=== PATIENT | female | born 1955 | race Caucasian/White ===

== ENCOUNTER → 2017-03-07 | Outpatient (CLI) | payer BC, SELFPAY | PROVIDERS: Visit Provider Internal Medicine | DX: G51.0 Bell's palsy (principal); I10 Essential (primary) hypertension; Z72.0 Tobacco use; I48.0 Paroxysmal atrial fibrillation | CPT/HCPCS: 70551 ==

== ENCOUNTER → 2017-06-21 08:48 | Outpatient (CLI) | payer BC, SELFPAY ==
[2017-06-21 09:37] LABS: Basophils # 0.1 K/mm3 (0-0.2); Basophils % 0.8 % (0.1-2.0); Eosinophils # 0.2 K/mm3 (0.0-0.4); Eosinophils % 2.7 % (0.1-12.0); Hematocrit 46.9 % (37.0-47.0); Hemoglobin 14.9 g/dL (12.2-16.2); Lymphocytes # 2.3 K/mm3 (0.7-4.5); Lymphocytes % 35.6 K/mm3 (10-50); Mean Corpuscular HGB Conc 31.8 g/dL (31.8-35.4); Mean Corpuscular Hemoglobin 29.5 pg (27.0-31.2); Mean Corpuscular Volume 92.9 fl (81-99); Mean Platelet Volume 8.4 fl (7.4-10.4); Monocytes # 0.4 K/mm3 (0.1-1.0); Monocytes % 5.9 % (1.7-9.3); Neutrophils # 3.5 K/mm3 (1.8-7.8); Platelet Count 185 K/mm3 (142-424); Red Blood Count 5.05 M/mm3 (4.20-5.40); Red Cell Distribution Width 13.8 % (11.5-17.5); White Blood Count 6.3 K/mm3 (4.8-10.8)
[2017-06-21 09:40] LABS: Alanine Aminotransferase 28 U/L (12-78); Albumin Level 3.7 gm/dL (3.4-5.0); Albumin/Globulin Ratio 1.1 (1.1-1.8); Alkaline Phosphatase 106 U/L (46-116); Anion Gap 10.4 mEq/L (5-15); Aspartate Amino Transferase 18 U/L (15-37); Bilirubin,Total 0.4 mg/dL (0.2-1.0); Blood Urea Nitrogen 25 mg/dL (7-18); Calcium 9.8 mg/dL (8.5-10.1); Carbon Dioxide 32 mmol/L (21.0-32.0); Chloride 109 mmol/L (98-107); Creatinine,Serum 0.77 mg/dL (0.55-1.02); Estimated Glomerular Filt Rate 76 ml/min (>60); GFR (African American) 92 ML/MIN (>60); Globulin 3.4 gm/dl (1.3-3.2); Glucose 106 mg/dL (74-106); Potassium 4.4 mmoL/L (3.5-5.1); Sodium 147 mmol/L (136-145); Total Protein,Serum 7.1 gm/dL (6.4-8.2)
== END ==
PROVIDERS: Visit Provider Specialist
DX: D35.2 Benign neoplasm of pituitary gland (principal); R90.89 Other abnormal findings on diagnostic imaging of central nervous system; C56.2 Malignant neoplasm of left ovary
CPT/HCPCS: 36415; 80053; 85025

== ENCOUNTER → 2017-06-23 13:45 | Outpatient (CLI) | payer BC, SELFPAY ==
--- NOTE | 2017-06-23 13:47 | MR_ITS ---
MR head/brain wo/w con HISTORY: Follow-up of 2 enteric enlargement, pituitary adenoma ITS.REASON: Pituitary evaluation ORDERING PHYSICIAN: Ember Nelson MD PATIENT AGE: 62 years COMPARISON: 03/07/2017 TECHNIQUE: Standard multiplanar multiecho sequences are performed without and with gadolinium enhancement.. In addition, dynamic thin section coronal pre and post enhanced images are performed of the pituitary fossa FINDINGS: No midline shift, mass effect, intracranial hemorrhage, or hydrocephalus. No evidence of acute infarction. On the post enhanced images, there is an 11 x 8 mm rounded area of isointensity/nonenhancement involving the central and right aspect of the pituitary gland at the centered within the right paracentral aspect of the pituitary gland with a small extension extending inferior to the sellar portion of the right internal carotid artery. 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 The pituitary stalk is deviated toward the left. The AP dimension of the lesion is 13 mm. There is no compression upon the optic chiasm. No hydrocephalus. No other intracranial lesions are evident. The lesion probably not significant change from 03/07/2017 but is much more obvious on the post enhanced images from today's exam. No other significant anomalies are evident. 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 The lesion however does not appear to extend outside of the sella turcica. The right carotid artery is slightly displaced superiorly at this region. IMPRESSION:
== END ==
PROVIDERS: Family Provider Family Medicine; PCP Internal Medicine; Visit Provider Specialist
DX: D35.2 Benign neoplasm of pituitary gland (principal); R90.89 Other abnormal findings on diagnostic imaging of central nervous system; C56.2 Malignant neoplasm of left ovary
CPT/HCPCS: 70553; A9576

== ENCOUNTER → 2017-07-03 14:59 | Outpatient (CLI) | payer BC, SELFPAY ==
[2017-07-07 12:35] LABS: Prolactin 14.6 ng/mL (4.8-23.3)
== END ==
PROVIDERS: Family Provider Family Medicine; PCP Internal Medicine; Visit Provider Specialist
DX: D35.2 Benign neoplasm of pituitary gland (principal)
CPT/HCPCS: 36415; 84146

== ENCOUNTER 2018-01-02 15:42 | Observation (INO) ==
--- NOTE | 2018-01-02 17:44 | History & Physical Report ---
*Admission Date: 01/02/18 *Chief complaint: Heart racing *History of present illness: This 62-year-old white female has a history of paroxysmal atrial fibrillation. She presented in the office of Dr. Gutierrez today with a heart rate of 140. Dr. Gutierrez decided to admit her for further evaluation and treatment. She has received bisoprolol and seems to be feeling better with some gradual slowing of her heart rate. He remains in atrial fibrillation at this time with a heart rate of 100-120. She has had the paroxysmal atrial fibrillation for years. She normally takes diltiazem extended release 240 mg per 24 hours and Eliquis 5 mg twice a day. She has rheumatoid arthritis and is treated for that as well. She has obstructive sleep apnea and uses a CPAP machine. 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), Chronic Obstructive Pulmonary Disease (COPD), Cerebrovascular Accident, Hyperlipidemia, Hypertension, Palpitations Denies:: Diabetes Mellitus Type 1, Diabetes Mellitus Type 2, MRSA Other Medical History: Reports: Arthritis Other Surgeries: Yes: Appendectomy (05/15/2017), Hysterectomy-Total (05/15/2017), Thyroidectomy (Actually a parathyroidectomy.), Tubal Ligation, Other Amputation: No Fractures: No - *Social History Smoking Status: Former smoker Tobacco Type: cigarettes Alcohol Intake: never Alcohol Intake Frequency:: other Substance Use Type: denies use Occupational Status: employed Housing: house Household Members: spouse - Psychiatric History Expresses thoughts of harming self/others: None Suicide Plan Description: No Plan *Family Hx:: Cancer (Mother age 60 for breast cancer and colon cancer), Hypertension (Father with hernia and hypertension) 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 She had the adenocarcinoma of the ovary) Review of Systems - Review of Systems Review of systems:: pertinent systems reviewed and negative unless documented below - Constitutional Denies anorexia, Denies body ache(s), Denies weight gain, Denies weight loss - Eyes Denies blurry vision, Denies change in vision - ENT Denies abnormal hearing, Denies neck lump, Denies neck pain - *Cardiovascular Reports shortness of breath, Reports irregular heart rhythm, Reports fast heart rate - *Respiratory Reports chest congestion, Reports cough - *Gastrointestinal Denies abdominal pain - *Genitourinary Denies abnormal vaginal bleeding, Denies pelvic pain - *Musculoskeletal Reports joint pain, Reports joint swelling, Denies abnormal walking - Integumentary/Breasts Denies new lesions - *Neurologic Reports dizziness, Reports other (Recent diagnosis of pituitary tumor), Denies abnormal hearing, Denies abnormal speech - Psychiatric Denies behavioral changes - Endocrine Denies cold intolerance, Denies excessive sweating - Allergic/Immunologic Denies GI upset with certain foods Meds Home Medications Medication Instructions Recorded Confirmed Type apixaban 5 mg tablet 5 mg PO BID 04/10/17 History aspirin 81 mg tablet,delayed 81 mg PO QDAY 04/10/17 History release atorvastatin 20 mg tablet 20 mg PO QDAY 04/10/17 History diltiazem CD 240 mg 240 mg PO QDAY 04/10/17 History capsule,extended release 24 hr etanercept 50 mg/mL (0.98 mL) 50 mg SUB-Q QWEEK 04/10/17 History subcutaneous syringe hydroxychloroquine 200 mg tablet 200 mg PO QDAY 04/10/17 History pantoprazole 40 mg tablet,delayed 40 mg PO QDAY 04/10/17 History release Lisinopril/Hydrochlorothiazide 1 tab PO DAILY 01/02/18 01/02/18 History [Lisinopril-Hctz 20-12.5 mg Tab] Allergies Allergy/AdvReac Type Severity Reaction Status Date / Time CODEINE Allergy Intermediate NA-DIZZINES Uncoded 09/28/17 09:56 S TETRACYCLINE Allergy Intermediate I-RASH Uncoded 09/28/17 09:56 Exam Vital signs and Labs for Last 24 Hours: Temp Pulse Resp BP Pulse Ox 98.0 F 117 H 15 139/69 94 L 01/02/18 17:02 01/02/18 17:02 01/02/18 17:02 01/02/18 17:02 01/02/18 17:02 I & O for Last 24 hours: Intake & Output 12/31/17 01/01/18 01/02/18 01/03/18 11:59 11:59 11:59 11:59 Weight 392 lb 6.765 oz - Constitutional no acute distress (Feeling better since admission. Aware of rapid heart rate) - *Routine HEENT Exam Head: Present: normocephalic Eye: Present: EOMI, PERRL ENT: Present: mucous membranes moist - *Routine Neck Exam Present: supple. Absent: lymphadenopathy - *Routine Respiratory Exam Present: rales (Air movement is good but there are some rales heard at the bases bilaterally.) - *Routine Cardiovascular Exam Present: RRR, irregularly irregular - *Routine Abdominal Exam Present: soft. Absent: tenderness - *Routine Rectal Exam Comments: Not examined - *Routine Exam Comments: Not examined - *Routine Extremities Exam Absent: edema - *Routine Skin Exam Present: intact, dry - *Routine Neurological Exam Present: alert, oriented X3. Absent: altered mental status Assessment and Plan (1) Hypertensive disorder Current visit: No Status: Chronic Qualifiers: Hypertension type: essential hypertension Qualified Code(s): I10 - Essen tial (primary) hypertension Category: Medical Code(s): I10 - Essential (primary) hypertension (2) Obstructive sleep apnea syndrome Current visit: No Status: Chronic Category: Medical Code(s): G47.33 - Obstructive sleep apnea (adult) (pediatric) (3) Paroxysmal atrial fibrillation Current visit: No Status: Chronic Category: Medical Code(s): I48.0 - Paroxysmal atrial fibrillation
[2018-01-03 06:12] LABS: Basophils # 0.1 K/mm3 (0-0.2); Eosinophils # 0.2 K/mm3 (0.0-0.4); Eosinophils % 2.9 % (0.1-12.0); Hematocrit 45.6 % (37.0-47.0); Hemoglobin 14.9 g/dL (12.2-16.2); Lymphocytes # 2.6 K/mm3 (0.7-4.5); Lymphocytes % 33.3 K/mm3 (10-50); Mean Corpuscular HGB Conc 32.6 g/dL (31.8-35.4); Mean Corpuscular Hemoglobin 30.1 pg (27.0-31.2); Mean Corpuscular Volume 92.2 fl (81-99); Mean Platelet Volume 8.7 fl (7.4-10.4); Monocytes # 0.5 K/mm3 (0.1-1.0); Monocytes % 6.3 % (1.7-9.3); Neutrophils # 4.4 K/mm3 (1.8-7.8); Neutrophils % 56.5 % (37.0-80.0); Platelet Count 189 K/mm3 (142-424); Red Blood Count 4.94 M/mm3 (4.20-5.40); Red Cell Distribution Width 14.1 % (11.5-17.5); White Blood Count 7.8 K/mm3 (4.8-10.8)
[2018-01-03 06:46] LABS: Anion Gap 6.8 mEq/L (5-15); Calcium 8.8 mg/dL (8.5-10.1); Potassium 3.8 mmoL/L (3.5-5.1); Thyroid Stimulating Hormone 1.34 uIU/ml (0.358-3.740)
--- NOTE | 2018-01-03 08:39 | Progress Note ---
Internal Medicine - PN: Subj *Date: 01/03/18 *Time: 08:36 Interval history: Patient feels about the same today. Her HR has slowed. She does have a slight cough. Did not rest well or eat very much this am. Exam Vital signs and Labs for Last 24 Hours: Temp Pulse Resp BP Pulse Ox 97.9 F 103 H 16 115/67 95 01/02/18 20:00 01/03/18 06:00 01/02/18 20:00 01/03/18 06:00 01/03/18 06:00 Laboratory Results - last 24 hr 01/03/18 05:23: WBC 7.8, RBC 4.94, Hgb 14.9, Hct 45.6, MCV 92.2, MCH 30.1, MCHC 32.6, RDW 14.1, Plt Count 189, MPV 8.7, Neut % (Auto) 56.5, Lymph % (Auto) 33.3, [place] % (Auto) 6.3, Eos % (Auto) 2.9, Baso % (Auto) 1.0, Neut # (Auto) 4.4, Lymph # (Auto) 2.6, [place] # (Auto) 0.5, Eos # (Auto) 0.2, Baso # (Auto) 0.1 01/03/18 05:23: Sodium 139, Potassium 3.8, Chloride 107, Carbon Dioxide 29, Anion Gap 6.8, BUN 19 H, Creatinine 0.91, Estimated Creat Clear 76, Estimated GFR 63, Est GFR ( Amer) 76, Glucose 102, Calcium 8.8, TSH 1.34 I & O for Last 24 hours: Intake & Output 12/31/17 01/01/18 01/02/18 01/03/18 11:59 11:59 11:59 11:59 Intake Total 370 / 370 Balance 370 / 370 Weight 178 lb 9.6 oz - Constitutional no acute distress - *Routine Respiratory Exam Present: rhonchi - *Routine Cardiovascular Exam Present: RRR, irregularly irregular - *Routine Abdominal Exam Present: soft, normoactive bowel sounds. Absent: tenderness - *Routine Extremities Exam Absent: cyanosis, clubbing, edema Assessment and Plan (1) Hypertensive disorder Current visit: No Status: Chronic Qualifiers: Hypertension type: essential hypertension Qualified Code(s): I10 - Essential (primary) hypertension Category: Medical Code(s): I10 - Essential (primary) hypertension (2) Obstructive sleep apnea syndrome Current visit: No Status: Chronic Category: Medical Code(s): G47.33 - Obstructive sleep apnea (adult) (pediatric) (3) Paroxysmal atrial fibrillation Current visit: No Status: Chronic Category: Medical Code(s): I48.0 - Paroxysmal atrial fibrillation - Assessment and plan all Dx Assessment and Plan for all problems:: Cardiology has been consulted. Will get a CXR today.
--- NOTE | 2018-01-03 08:58 | Pharmacy Consult Notes ---
[facility] Pharmacy VTE Monitoring - Patient Demographics Admission date: 01/02/18 Report Date: 01/03/18 Time: 08:57 Allergies/Adverse Reactions: Patient Allergies CODEINE Allergy (Intermediate, Uncoded 09/28/17 09:56) NA-DIZZINESS TETRACYCLINE Allergy (Intermediate, Uncoded 09/28/17 09:56) I-RASH Height: 1.65 m Weight: 81.012 kg - VTE Risk Labs: VTE Related Lab Results Hgb 14.9 g/dL (12.2-16.2) 01/03/18 05:23 Hct 45.6 % (37.0-47.0) 01/03/18 05:23 Plt Count 189 K/mm3 (142-424) 01/03/18 05:23 BUN 19 mg/dL (7-18) H 01/03/18 05:23 Creatinine 0.91 mg/dL (0.55-1.02) 01/03/18 05:23 Estimated Creat Clear 76 mL/min (0-300) 01/03/18 05:23 Was VTE Risk Assessment Performed: Yes VTE Risk Level: Very Low Risk - Prophylaxis VTE Prophylaxis Ordered?: Yes Types of VTE Prophylaxis: Pharmacological Pharmacologic Type: Other (ELIQUIS)
--- NOTE | 2018-01-03 09:02 | Progress Note ---
Addendum entered and electronically signed by AISHA Dunaway 01/03/18 09:03: CXR cancelled for Dr. Tristan after he reviewed admission CXR. Original Note: Subjective Date: 01/03/18 Time: 08:57 Principal diagnosis: A. fib Interval history: 62 yo WF in bed in NAD. Anxious about heart rate and returning to stress at work. No chest pain. Slight headache last evening. Exam Vital signs and Labs for Last 24 Hours: Temp Pulse Resp BP Pulse Ox 97.9 F 103 H 16 115/67 95 01/02/18 20:00 01/03/18 06:00 01/02/18 20:00 01/03/18 06:00 01/03/18 06:00 Laboratory Results - last 24 hr 01/03/18 05:23: WBC 7.8, RBC 4.94, Hgb 14.9, Hct 45.6, MCV 92.2, MCH 30.1, MCHC 32.6, RDW 14.1, Plt Count 189, MPV 8.7, Neut % (Auto) 56.5, Lymph % (Auto) 33.3, [place] % (Auto) 6.3, Eos % (Auto) 2.9, Baso % (Auto) 1.0, Neut # (Auto) 4.4, Lymph # (Auto) 2.6, [place] # (Auto) 0.5, Eos # (Auto) 0.2, Baso # (Auto) 0.1 01/03/18 05:23: Sodium 139, Potassium 3.8, Chloride 107, Carbon Dioxide 29, Anion Gap 6.8, BUN 19 H, Creatinine 0.91, Estimated Creat Clear 76, Estimated GFR 63, Est GFR ( Amer) 76, Glucose 102, Calcium 8.8, TSH 1.34 I & O for Last 24 hours: Intake & Output 12/31/17 01/01/18 01/02/18 01/03/18 11:59 11:59 11:59 11:59 Intake Total 850 / 850 Balance 850 / 850 Weight 178 lb 9.6 oz - *Routine Respiratory Exam Present: CTA bilaterally. Absent: accessory muscle use, rales, rhonchi, wheezes - *Routine Cardiovascular Exam Present: RRR, irregularly irregular. Absent: murmur, gallop, rubs - *Routine Extremities Exam Absent: cyanosis, edema, calf tenderness - *Routine Skin Exam Present: warm. Absent: cyanosis - *Routine Neurological Exam Present: alert, oriented X3, moving all extremities Progress Note: A&P (1) Hypertensive disorder Status: Chronic Current Visit: No (2) Obstructive sleep apnea syndrome Status: Chronic Current Visit: No (3) Paroxysmal atrial fibrillation Status: Chronic Current Visit: No Assessment and Plan for All Diagnoses:: 1. Stop lisinopril 2. Increase bisoprolol to 10 mg daily this AM. 3. Continue diltiazem. 4. Hopefully home later today if BP and HR controlled. 5. Continue eliquis. 6. Follow up in office on this monday.
--- NOTE | 2018-01-03 18:24 | Progress Note ---
Internal Medicine - PN: Subj *Date: 01/03/18 *Time: 18:22 Interval history: She is stable and able to be discharged today. She will continue on bisoprolol 10 mg a day at present. Lisinopril has been discontinued. Other medications are the same. She has follow-up Monday in Dr. Gutierrez's office as well as Dr. kenyon's office. Exam Vital signs and Labs for Last 24 Hours: Temp Pulse Resp BP Pulse Ox 98.5 F 87 17 97/56 L 92 L 01/03/18 15:49 01/03/18 15:49 01/03/18 15:49 01/03/18 15:49 01/03/18 15:49 Laboratory Results - last 24 hr 01/03/18 05:23: WBC 7.8, RBC 4.94, Hgb 14.9, Hct 45.6, MCV 92.2, MCH 30.1, MCHC 32.6, RDW 14.1, Plt Count 189, MPV 8.7, Neut % (Auto) 56.5, Lymph % (Auto) 33.3, [place] % (Auto) 6.3, Eos % (Auto) 2.9, Baso % (Auto) 1.0, Neut # (Auto) 4.4, Lymph # (Auto) 2.6, [place] # (Auto) 0.5, Eos # (Auto) 0.2, Baso # (Auto) 0.1 01/03/18 05:23: Sodium 139, Potassium 3.8, Chloride 107, Carbon Dioxide 29, Anion Gap 6.8, BUN 19 H, Creatinine 0.91, Estimated Creat Clear 76, Estimated GFR 63, Est GFR ( Amer) 76, Glucose 102, Calcium 8.8, TSH 1.34 I & O for Last 24 hours: Intake & Output 01/01/18 01/02/18 01/03/18 01/04/18 11:59 11:59 11:59 11:59 Intake Total 850 / 850 480 / 480 Balance 850 / 850 480 / 480 Weight 178 lb 9.6 oz Assessment and Plan (1) Paroxysmal atrial fibrillation Current visit: No Status: Acute Category: Medical Code(s): I48.0 - Paroxysmal atrial fibrillation (2) Hypertensive disorder Current visit: No Status: Chronic Qualifiers: Hypertension type: essential hypertension Qualified Code(s): I10 - Essential (primary) hypertension Category: Medical Code(s): I10 - Essential (primary) hypertension (3) Obstructive sleep apnea syndrome Current visit: No Status: Chronic Category: Medical Code(s): G47.33 - Obstructive sleep apnea (adult) (pediatric) - Assessment and plan all Dx Assessment and Plan for all problems:: Discharge
--- NOTE | 2018-01-05 15:23 | Discharge Summary ---
General - General Admission date:: 01/02/18 Discharge date: 01/03/18 HPI HPI: This 62-year-old white female has a history of paroxysmal atrial fibrillation. She presented in the office of Dr. Gutierrez today with a heart rate of 140. Dr. Gutierrez decided to admit her for further evaluation and treatment. She has received bisoprolol and seems to be feeling better with some gradual slowing of her heart rate. She remains in atrial fibrillation at this time with a heart rate of 100-120. She has had the paroxysmal atrial fibrillation for years. She normally takes diltiazem extended release 240 mg per 24 hours and Eliquis 5 mg twice a day. She has rheumatoid arthritis and is treated for that as well. She has obstructive sleep apnea and uses a CPAP machine. Hospital Course Hospital Course: The patient's lisinopril was discontinued and she was started on bisoprolol 10mg daily. She remained in afib but her rate decreased. She was seen by cardiology and they felt she could be discharged home on bisoprolol and f/u with them in the office. Objective Vital signs: Temp Pulse Resp BP Pulse Ox 98.5 F 87 17 97/56 L 92 L 01/03/18 15:49 01/03/18 15:49 01/03/18 15:49 01/03/18 15:49 01/03/18 15:49 Narrative: - Constitutional no acute distress (Feeling better since admission. Aware of rapid heart rate) - *Routine HEENT Exam Head: Present: normocephalic Eye: Present: EOMI, PERRL ENT: Present: mucous membranes moist - *Routine Neck Exam Present: supple. Absent: lymphadenopathy - *Routine Respiratory Exam Present: rales (Air movement is good but there are some rales heard at the bases bilaterally.) - *Routine Cardiovascular Exam Present: RRR, irregularly irregular - *Routine Abdominal Exam Present: soft. Absent: tenderness - *Routine Rectal Exam Comments: Not examined - *Routine Exam Comments: Not examined - *Routine Extremities Exam Absent: edema - *Routine Skin Exam Present: intact, dry - *Routine Neurological Exam Present: alert, oriented X3. Absent: altered mental status DS: Diagnosis - Discharge Diagnosis (1) Paroxysmal atrial fibrillation Status: Acute (2) Hypertensive disorder Status: Chronic (3) Obstructive sleep apnea syndrome Status: Chronic Discharge Plan - Patient Discharge Instructions ACTIVITY: Limited activity DIET: continue same diet Patient Instructions: DI for Atrial Fibrillation - Follow up Plan Disposition: Home, Self-Custodial Medications: Home Medications Medication Instructions Recorded Confirmed Type apixaban 5 mg tablet 5 mg PO BID 04/10/17 01/05/18 History aspirin 81 mg tablet,delayed 81 mg PO DAILY 04/10/17 01/05/18 History release diltiazem CD 240 mg 240 mg PO DAILY 04/10/17 01/05/18 History capsule,extended release 24 hr pantoprazole 40 mg tablet,delayed 40 mg PO DAILY 04/10/17 01/05/18 History release Atorvastatin Calcium [Atorvastatin 10 mg PO HS 01/03/18 01/05/18 History 10mg Tab] Etanercept [Enbrel Sureclick] 50 mg SQ WEEKLY 01/03/18 01/05/18 History Hydroxychloroquine Sulfate 200 mg PO BID 01/03/18 01/05/18 History [Plaquenil 200mg tablet] Prescriptions/Medication Reconciliation: New Bisoprolol Fumarate [Zebeta 5mg tablet] 10 mg PO DAILY 30 Days #30 tab Continue aspirin 81 mg tablet,delayed release 81 mg PO DAILY diltiazem CD 240 mg capsule,extended release 24 hr 240 mg PO DAILY apixaban 5 mg tablet 5 mg PO BID pantoprazole 40 mg tablet,delayed release 40 mg PO DAILY Etanercept [Enbrel Sureclick] 50 mg SQ WEEKLY Hydroxychloroquine Sulfate [Plaquenil 200mg tablet] 200 mg PO BID Atorvastatin Calcium [Atorvastatin 10mg Tab] 10 mg PO HS Discontinued Lisinopril [Lisinopril 20mg Tab] 20 mg PO DAILY
== END 2018-01-03 19:03 | disposition home or self-care (01) ==
LOC: ICU → 2ND 01-03 15:09
PROVIDERS: ADMIT Family Medicine; ATTEND Family Medicine
CPT/HCPCS: 36415; 71020; 71046; 80048; 84443; 85025; G0378

== ENCOUNTER → 2018-01-25 07:16 | Outpatient (CLI) | payer BC, SELFPAY ==
--- NOTE | 2018-01-25 07:18 | CA_ITS ---
PROCEDURE: INDICATIONS FOR THE TEST: Chest pain COPD Heart Murmur Tobacco Smoking Palpitations Fatigue Syncope Edema HypertensionXDiabetes Mellitus Rheumatic Fever SOBXDOE Obesity Hyperlipidemia Family History HD Additional History AF PATIENT INFORMATION HEIGHT: 62 WEIGHT:179 GENDER: Female B/P:101/71 2-D/M-MODE INTERPRETATION: 2-D MEASUREMENTS OBSERVED VALUES IN CMS Right Ventricular Dimension (RVDd) 3.2 Interventricular Septum (Thickness)(IVsd) .8 Left Ventricular Internal Dimensions(LVIDd) 5.0 Left Ventricular Posterior Wall (Thickness)(LVPWd) .6 Aortic Root 3.3 Aortic Cusp Separation 1.9 Left Atrial Dimensions (LAD) 4.0 2D 1. Left atrium is qualitatively mildly enlarged, left ventricle is normal size, mild concentric left ventricular hypertrophy, visually estimated ejection fraction 55% with no regional wall motion abnormality. 2. The right atrium and ventricle are mildly enlarged with normal contractility. 3. The aortic valve is minimally thickened and fibrosed. 4. The mitral and tricuspid valvular grossly normal. 5. The pulmonic valve is poorly present. 6. No significant pericardial effusion noted. DOPPLER INTERROGATION: Doppler interrogation of the aortic, mitral and tricuspid valvular presence of mild mitral and tricuspid regurgitation, tricuspid regurgitation jet velocity is inadequate for calculation of the right ventricular systolic pressure, grade 1 diastolic dysfunction seen with tissue Doppler evidence of raised left atrial pressure. CONCLUSION: 1. Mildly enlarged left atrium, normal left ventricular size, mild concentric left ventricular hypertrophy, visually estimated ejection fraction 55% with no regional wall motion abnormality. Grade 1 diastolic dysfunction seen with tissue Doppler evidence of raised left atrial pressure. 2. Mildly enlarged right atrium and right ventricle, contractility of the right ventricle is normal. 3. Mild mitral and tricuspid regurgitation 4. No significant pericardial effusion noted.
--- NOTE | 2018-01-25 07:18 | NM_ITS ---
History and Indications: Hypertension, hyperlipidemia, shortness of breath. Procedure: Patient received 0.4 mg of intravenous Lexiscan, resting heart rate was 56 bpm resting blood pressure 136/77, with Lexiscan maximum heart rate achieved was 77 bpm which is less than 85% of the maximum predicted heart rate and a blood pressure was 115/56. With Lexiscan complaint of shortness of breath. Electrocardiogram: Resting electrocardiogram showed sinus bradycardia with Lexiscan there is less than 1.[address] segment depression noted from the baseline EKG. The EKG portion of the Lexiscan Myoview is nondiagnostic. Cardiac stress and resting SPECT images: Cardiac stress and rest SPECT images were obtained using technetium 99 Myoview 31.3 mCi stress and 10.3 mCi rest. Gated SPECT further analysis of segmental wall motion and calculation of the ejection fraction also done. Cardiac stress and rest images show mild fixed defect in the anterior wall with normal contractility gated SPECT is likely secondary to soft tissue attenuation, no reversible ischemia seen. Computer derived ejection fraction is 64% with no regional wall motion abnormality, right ventricle is normal size and contractility. Conclusion: 1. The EKG portion of the Lexiscan Myoview is nondiagnostic. 2. No scintigraphic evidence of reversible ischemia seen, computer derived ejection fraction is 64% with no regional wall motion abnormality, right ventricle is normal size and contractility. 3. Normal Lexiscan Myoview study.
--- NOTE | 2018-01-25 10:36 | HMH.ITSHM ---
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 []bisprolol cartia pantoprazole enbrel asa atorvastatin
== END ==
PROVIDERS: PCP Family Medicine; Visit Provider Internal Medicine Cardiovascular Disease
DX: R07.9 Chest pain, unspecified (principal); R06.00 Dyspnea, unspecified; I48.0 Paroxysmal atrial fibrillation; E78.49 Other hyperlipidemia; G47.33 Obstructive sleep apnea (adult) (pediatric); I10 Essential (primary) hypertension; Z79.01 Long term (current) use of anticoagulants
CPT/HCPCS: 78452; 93005; 93017; 93306; A9502; J2785

== ENCOUNTER → 2019-04-22 16:23 | Outpatient (CLI) | payer BC, SELFPAY ==
--- NOTE | 2019-04-22 16:25 | XR_ITS ---
PROCEDURE: XR CERVICAL SPINE W FLEX/EXT CLINICAL INDICATION: neck pain COMPARISON: No exams were available for comparison FINDINGS: Normal alignment. No fracture or dislocation is evident. No lytic or blastic change. Mild facet arthritic changes are present at C4-C5. No significant foraminal narrowing. Mild degenerative disc disease C5-C6. Small anterior osteophytes are present at C4-C5 and C6. Flexion and extension views were obtained. There is minimal anterior subluxation of C3 on C4 of 2 mm and C4 on C5 of 2 mm.. There are carotid artery calcifications noted IMPRESSION: Degenerative changes, no acute finding Minimal anterior subluxation of C3 on C4 of 2 mm and C4 on C5 of 2 mm of questionable clinical significance Dictated by: Nav Jolley MD 04/22/2019 17:58 Electronically signed by Nav Jolley MD in [place] 04/22/2019 17:58
[2019-04-22 17:59] LABS: Ferritin 113 ng/mL (8-388)
== END ==
PROVIDERS: PCP Family Medicine; Visit Provider Specialist
DX: M54.2 Cervicalgia (principal); E83.10 Disorder of iron metabolism, unspecified; G25.81 Restless legs syndrome
CPT/HCPCS: 36415; 72052; 82728

== ENCOUNTER → 2019-05-27 08:02 | Outpatient (POV) | payer BC, SELFPAY | PROVIDERS: PCP Family Medicine; Visit Provider Specialist | DX: M54.2 Cervicalgia (principal); G25.81 Restless legs syndrome; M54.10 Radiculopathy, site unspecified; R20.0 Anesthesia of skin; R20.2 Paresthesia of skin | CPT/HCPCS: 95886; 95909 ==

== ENCOUNTER → 2019-07-15 16:55 | Outpatient (CLI) | payer BC, SELFPAY ==
[2019-07-15 17:14] LABS: Basophils # 0.1 K/mm3 (0-0.2); Basophils % 1.2 % (0.1-2.0); Eosinophils # 0.1 K/mm3 (0.0-0.4); Eosinophils % 1.7 % (0.1-12.0); Hematocrit 47.1 % (37.0-47.0); Hemoglobin 15.5 g/dL (12.2-16.2); Lymphocytes # 1.8 K/mm3 (0.7-4.5); Lymphocytes % 23.2 % (10-50); Mean Platelet Volume 8.5 fl (7.4-10.4); Monocytes # 0.4 K/mm3 (0.1-1.0); Monocytes % 5.2 % (1.7-9.3); Neutrophils # 5.3 K/mm3 (1.8-7.8); Neutrophils % 68.6 % (37.0-80.0); Platelet Count 162 K/mm3 (142-424); Red Blood Count 5.01 M/mm3 (4.20-5.40); Red Cell Distribution Width 13.5 % (11.5-17.5); White Blood Count 7.8 K/mm3 (4.8-10.8)
[2019-07-15 18:12] LABS: Erythrocyte Sedimentation Rate 12 mm/hr (0-30)
[2019-07-15 18:51] LABS: Chloride 104 mmol/L (98-107)
[2019-07-15 18:52] LABS: Potassium 3.8 mmoL/L (3.5-5.1); Sodium 141 mmol/L (136-145)
[2019-07-15 18:54] LABS: Alanine Aminotransferase 24 U/L (12-78); Aspartate Amino Transferase 22 U/L (14-36); Blood Urea Nitrogen 17 mg/dl (7-17); Estimated Glomerular Filt Rate 72 ml/min (>60); GFR (African American) 88 ML/MIN (>60)
[2019-07-15 18:55] LABS: Albumin Level 4.2 g/dl (3.5-5.0); Albumin/Globulin Ratio 1.8 (1.1-1.8); Alkaline Phosphatase 83 U/L (38-126); Anion Gap 12.8 mEq/L (5-15); Bilirubin,Total 0.4 mg/dl (0.2-1.3); Calcium 9.5 mg/dl (8.4-10.2); Carbon Dioxide 28 mmol/L (22.0-30.0); Globulin 2.3 g/dL (1.3-3.2); Glucose 70 mg/dl (74-100); Total Protein,Serum 6.5 g/dl (6.3-8.2)
[2019-07-15 19:00] LABS: C-Reactive Protein 4.6 mg/L (0-4)
== END ==
PROVIDERS: Visit Provider Internal Medicine Rheumatology
DX: C57.8 Malignant neoplasm of overlapping sites of female genital organs (principal); D44.3 Neoplasm of uncertain behavior of pituitary gland; E55.9 Vitamin D deficiency, unspecified; G51.0 Bell's palsy; I48.91 Unspecified atrial fibrillation
CPT/HCPCS: 36415; 80053; 85025; 85651; 86140

== ENCOUNTER → 2020-01-01 16:26 | Outpatient (CLI) | payer BC, SELFPAY ==
[2020-01-01 17:03] LABS: Basophils # 0.1 K/mm3 (0-0.2); Basophils % 0.9 % (0.1-2.0); Eosinophils # 0.2 K/mm3 (0.0-0.4); Eosinophils % 2.6 % (0.1-12.0); Hematocrit 54.8 % (37.0-47.0); Hemoglobin 17.6 g/dL (12.2-16.2); Lymphocytes # 1.9 K/mm3 (0.7-4.5); Lymphocytes % 25.9 % (10-50); Mean Corpuscular Hemoglobin 30.7 pg (27.0-31.2); Mean Corpuscular Volume 95.9 fl (81-99); Mean Platelet Volume 9.4 fl (7.4-10.4); Monocytes # 0.5 K/mm3 (0.1-1.0); Monocytes % 6.6 % (1.7-9.3); Neutrophils # 4.6 K/mm3 (1.8-7.8); Neutrophils % 63.8 % (37.0-80.0); Platelet Count 158 K/mm3 (142-424); Red Blood Count 5.72 M/mm3 (4.20-5.40); Red Cell Distribution Width 13.7 % (11.5-17.5); White Blood Count 7.2 K/mm3 (4.8-10.8)
[2020-01-01 17:31] LABS: Chloride 103 mmol/L (98-107); Potassium 3.8 mmoL/L (3.5-5.1); Sodium 142 mmol/L (136-145)
[2020-01-01 17:34] LABS: Alanine Aminotransferase 30 U/L (12-78); Albumin Level 4.3 g/dl (3.5-5.0); Albumin/Globulin Ratio 1.6 (1.1-1.8); Alkaline Phosphatase 123 U/L (38-126); Anion Gap 10.8 mEq/L (5-15); Aspartate Amino Transferase 26 U/L (14-36); Bilirubin,Total 0.4 mg/dl (0.2-1.3); Blood Urea Nitrogen 26 mg/dl (7-17); Calcium 9.7 mg/dl (8.4-10.2); Carbon Dioxide 32 mmol/L (22.0-30.0); Estimated Glomerular Filt Rate 72 ml/min (>60); GFR (African American) 88 ML/MIN (>60); Globulin 2.7 g/dL (1.3-3.2); Glucose 106 mg/dl (74-100)
[2020-01-01 18:30] LABS: Erythrocyte Sedimentation Rate 33 mm/hr (0-30)
== END ==
PROVIDERS: Visit Provider Internal Medicine Rheumatology
DX: C57.8 Malignant neoplasm of overlapping sites of female genital organs (principal); D44.3 Neoplasm of uncertain behavior of pituitary gland; E55.9 Vitamin D deficiency, unspecified; I48.91 Unspecified atrial fibrillation; G51.0 Bell's palsy
CPT/HCPCS: 36415; 80053; 85025; 85651; 86140

== ENCOUNTER → 2020-01-23 17:09 | Outpatient (CLI) | payer BC, SELFPAY ==
[2020-01-23 18:58] LABS: Chloride 105 mmol/L (98-107); Sodium 141 mmol/L (136-145)
[2020-01-23 18:59] LABS: Potassium 3.6 mmoL/L (3.5-5.1)
[2020-01-23 19:01] LABS: Blood Urea Nitrogen 28 mg/dl (7-17); Estimated Glomerular Filt Rate 72 ml/min (>60); GFR (African American) 88 ML/MIN (>60)
[2020-01-23 19:02] LABS: Anion Gap 11.6 mEq/L (5-15); Calcium 9.7 mg/dl (8.4-10.2); Carbon Dioxide 28 mmol/L (22.0-30.0); Glucose 99 mg/dl (74-100)
== END ==
PROVIDERS: Visit Provider Ophthalmology
DX: J44.9 Chronic obstructive pulmonary disease, unspecified (principal); I10 Essential (primary) hypertension
CPT/HCPCS: 36415; 80048

== ENCOUNTER → 2020-03-12 09:05 | Outpatient (CLI) | payer BC, SELFPAY ==
[2020-03-12 12:29] LABS: Coronavirus 19 IgG Antibody Positive (Negative); Coronavirus 19 IgM Antibody Positive (Negative)
== END ==
PROVIDERS: PCP Family Medicine; Visit Provider Family Medicine
DX: Z86.19 Personal history of other infectious and parasitic diseases (principal)
CPT/HCPCS: 86328

== ENCOUNTER → 2020-03-19 08:36 | Outpatient (CLI) | payer BC, SELFPAY ==
[2020-03-19 10:38] LABS: Coronavirus 19 IgG Antibody Positive (Negative)
[2020-03-19 10:39] LABS: Coronavirus 19 IgM Antibody Positive (Negative)
== END ==
PROVIDERS: PCP Family Medicine; Visit Provider Family Medicine
DX: Z86.19 Personal history of other infectious and parasitic diseases (principal)
CPT/HCPCS: 36415; 86328

== ENCOUNTER → 2020-03-26 09:25 | Outpatient (CLI) | payer BC, SELFPAY ==
[2020-03-26 13:19] LABS: Coronavirus 19 IgG Antibody Positive (Negative); Coronavirus 19 IgM Antibody Positive (Negative)
== END ==
PROVIDERS: PCP Family Medicine; Visit Provider Family Medicine
DX: Z86.16 Personal history of COVID-19 (principal)
CPT/HCPCS: 36415; 86328

== ENCOUNTER → 2020-06-01 06:16 | Outpatient (CLI) | payer BC, SELFPAY ==
--- NOTE | 2020-06-01 06:17 | CA_ITS ---
APPROVED REPORT Exam: Pharmacologic Technologist: Annabel Miles Ht: 5 ft 5 in Wt: 168 lbs BSA: 1.84 m2 HR: 58 bpm BP: 174/83 mmHg Indications: Atrial Fibrillation, Shortness of Breath Medical History Medications: Aspirin,,,,, Flecainide,,,,, Pantoprazole,,,,, Atorvastatin,,,,, Hydrochloroquine,,,,, Apixaban,,,,, ETanercept,,,,, Stress Test Details Test: LEXISCAN HR Resting HR: 63 bpm Max Heart Rate (APMHR): 156 bpm Max HR Achieved: 90 bpm Target HR (85% APMHR): 132 bpm % of APMHR: 57 Recovery HR: 80 bpm BP Resting BP: 174.0/83.0 mmHg Max BP: 174.0/83.0 mmHg Recovery BP: 163.0/84.0 mmHg ECG Resting ECG: Sinus rhythm Clinical Exercise duration: 04:01 min Highest Stage Achieved: Exercise capacity: 1.0 METs Stress ECG Conclusion Lexiscan portion completed. Patient complained of shortness of breath during peak infusion. Symptoms: Shortness of breath during peak infusion, resolved in recovery. No chest pain. Arrhythmias/Ectopy: No ectopy noted. ST-T Changes: Less than 1.[address] depression noted. Conclusion: Images to follow. Electronically signed by : Eliceo Calderon, 06/01/2020 18:27:56
--- NOTE | 2020-06-01 06:17 | CA_ITS ---
APPROVED REPORT EXAM: Comprehensive 2D, Doppler, and color-flow Echocardiogram Breakfast Manager: Michelle Rodríguez CRT Ht: 5 ft 5 in Wt: 168lbs BSA: 1.84 BP: 143/82 mmHg Indications: Shortness of Breath, Atrial Fibrillation, Hyperlipidemia, Hypertension/HDD 2D Dimensions LVOT 1.95 cm (M/F) 1.5-2.5 M-Mode Dimensions RVDd 3.21 cm (0.9-2.6) LA Diam 3.95 cm (1.9-4.0) LVDd 4.50 cm (3.5-5.7) Ao Diam 3.16 cm (2.0-3.7) LVDs 3.14 cm (3.5-5.7) IVSd 1.61 cm (0.6-1.1) PWd 0.50 cm (0.6-1.1) EF (Teich) 57.70% FS 30.20% EDV (Teich) 92.40 mL ESV (Teich) 39.10 mL LV Diastology E Decel Time 157.00 (160-240 msec) E/A Ratio 0.80 MED E' 5.70 (< 7 cm/sec) MED A' 9.20 cm/s E'/MED E' Ratio 10.46 (>14) LAT E' 9.00 (<10 cm/sec) LAT A' 11.60 cm/s E/LAT E' Ratio 6.62 (>14) Aortic Valve AO Peak GR. 5.90 mmHg Mitral Valve MV A Velocity 74.00 (40-130 cm/s) E/A Ratio 0.80 MV Decel. Time 157.00 (160-240 ms) Tricuspid Valve TR P. Velocity 149.00 cm/s RAP Estimate 10.00 mmHg RVSP 18.90 mmHg Left Ventricle Left atrium is mildly enlarged, left ventricle is normal size, mild concentric left ventricular hypertrophy, visually estimated ejection fraction 55% with no regional wall motion abnormality, grade 1 diastolic dysfunction seen without tissue Doppler evidence of raise left atrial pressure. Right Ventricle Right atrium and right ventricle are normal size and contractility. Aortic Valve Aortic valve is minimally thickened and fibrosed, there is no aortic stenosis or aortic insufficiency. Mitral Valve Mitral valve is grossly normal, there is trace mitral regurgitation. Tricuspid Valve Tricuspid valve grossly normal, there is trace tricuspid regurgitation. Tricuspid regurgitation jet velocity is inadequate for calculation of the right ventricular systolic pressure. Pulmonic Valve Pulmonic valve is poorly visualized. Great Vessels Aortic root is normal size. Pericardium No significant pericardial effusion noted. Conclusion 1. Mildly enlarged left atrium, normal left ventricular size, mild concentric left ventricular hypertrophy, visually estimated ejection fraction 55% with no regional wall motion abnormality, grade 1 diastolic dysfunction seen without tissue Doppler evidence of raise left atrial pressure. 2. Trace mitral and tricuspid regurgitation. 3. No significant pericardial effusion noted. Electronically signed by : Eliceo Calderon, 06/01/2020 17:48:41
--- NOTE | 2020-06-01 06:17 | NM_ITS ---
APPROVED REPORT Exam: Nuclear Stress Test Indication: SOB, Afib, Fatigue, HTN, High cholesterol, Tobacco use, Family history Patient Location: Outpatient Stress Tech: Annabel Miles RI Tech:Yudi Greenfield, ARRT, RT (R)(N) Ht: 5 ft 5 in Wt: 168 lbs Bra Size: 36B HR: 58 bpm BP: 174/83 mmHg BSA: 1.84 m2 BMI: 27.9 History: SOB, Afib, Fatigue, HTN, High cholesterol, Tobacco use, Family history Procedure: Patient received a 0.4 mg of intravenous Lexiscan, resting heart rate 58 bpm, resting blood pressure 174/83 mmHg, with Lexiscan maximum heart rate achived was 88 bpm which is Less than 85 % of the maximum predicted heart rate and blood pressure was 157/82 mmHg. With Lexiscan, patient denied any complaint of chest pain. Electrocardiogram Resting electrocardiogram showed sinus rhythm, with Lexiscan there is less than 1.[address] segment depression noted from the baseline EKG. The EKG portion of the Lexiscan is nondiagnostic. Cardiac Stress and Resting SPECT Images: Cardiac Stress and Resting SPECT images were obtained using technetium 99m Myoview 32.3 mCi stress and 10.48 mCi at rest. Gated SPECT for analysis of segmental wall motion and calculation of the ejection fraction also done. Prone images were also obtained. Cardiac stress and resting SPECT images show uniform myocardial activity without segmental perfusion abnormality, computer derived ejection fraction is 63% with no regional wall motion abnormality, right ventricle is normal size and contractility. Conclusion: 1. The EKG portion of the Lexiscan is nondiagnostic. 2. No scintigraphic evidence of reversible ischemia seen, computer derived ejection fraction is 63% with no regional wall motion abnormality, right ventricle is normal size and contractility. 3. Normal Lexiscan Myoview study. Electronically signed by : Eliceo Calderon, 06/01/2020 18:48:59
--- NOTE | 2020-06-01 08:02 | HMH.ITSHM ---
Current Home Medications as stated by this patient Melania Rose or inventory representative. []ATORVASTATIN ACID REFLUX MED ELIQUIS FLECINIDE LISINOPRIL EMBREL HYDROXYCHLOROQUINE ASA
== END ==
PROVIDERS: PCP Family Medicine; Visit Provider Nurse Practitioner Family
DX: R06.00 Dyspnea, unspecified (principal); I48.0 Paroxysmal atrial fibrillation; I10 Essential (primary) hypertension; E78.5 Hyperlipidemia, unspecified; G47.33 Obstructive sleep apnea (adult) (pediatric)
CPT/HCPCS: 78452; 93017; 93306; A9502; J2785

== ENCOUNTER → 2020-06-25 16:01 | Outpatient (CLI) | payer BC, SELFPAY ==
[2020-06-25 17:53] LABS: Potassium 4.8 mmoL/L (3.5-5.1)
== END ==
PROVIDERS: Visit Provider Ophthalmology
DX: I10 Essential (primary) hypertension (principal)
CPT/HCPCS: 36415; 84132

== ENCOUNTER → 2020-09-23 09:59 | Outpatient (CLI) | payer BC, SELFPAY ==
--- NOTE | 2020-09-23 10:01 | XR_ITS ---
PROCEDURE: XR CHEST 2V CLINICAL HISTORY: POST-COVID SYNDROME COMPARISON: CR CXR CHEST(2 VIEWS-NOT PORTABLE) from 04/21/2012 DX CXR CHEST(2 VIEWS-NOT PORTABLE) from 03/08/2017 CR CXR2V XR chest 2V from 01/02/2018 FINDINGS: The cardiomediastinal silhouette and pulmonary vascularity are within normal limits. There is coarsening of the bronchovascular markings which may be related to smoking related lung disease. Calcified breast implants are noted. No lobar consolidation or collapse. No areas of pulmonary fibrosis apparent. No acute bony abnormalities. IMPRESSION: Chronic changes. No change no acute finding. Dictated by: Nav Jolley MD 09/23/2020 10:20 Nav Jolley MD in [place] 09/23/2020 10:20
== END ==
PROVIDERS: PCP Family Medicine; Visit Provider Family Medicine
DX: B94.8 Sequelae of other specified infectious and parasitic diseases (principal); Z86.16 Personal history of COVID-19
CPT/HCPCS: 71046

== ENCOUNTER → 2020-11-11 09:15 | Outpatient (CLI) | payer BC, SELFPAY ==
[2020-11-11 09:43] LABS: Basophils # 0.1 K/mm3 (0-0.2); Basophils % 1.1 % (0.1-2.0); Eosinophils # 0.2 K/mm3 (0.0-0.4); Eosinophils % 2.2 % (0.1-12.0); Hematocrit 51.6 % (37.0-47.0); Hemoglobin 17.1 g/dL (12.2-16.2); Lymphocytes # 2.1 K/mm3 (0.7-4.5); Lymphocytes % 27.9 % (10-50); Mean Corpuscular HGB Conc 33.1 g/dL (31.8-35.4); Mean Corpuscular Hemoglobin 31.8 pg (27.0-31.2); Mean Corpuscular Volume 96.1 fl (81-99); Mean Platelet Volume 9.5 fl (7.4-10.4); Monocytes # 0.4 K/mm3 (0.1-1.0); Monocytes % 5.2 % (1.7-9.3); Neutrophils # 4.8 K/mm3 (1.8-7.8); Neutrophils % 63.6 % (37.0-80.0); Platelet Count 179 K/mm3 (142-424); Red Blood Count 5.37 M/mm3 (4.20-5.40); Red Cell Distribution Width 13.8 % (11.5-17.5); White Blood Count 7.5 K/mm3 (4.8-10.8)
[2020-11-11 10:12] LABS: Erythrocyte Sedimentation Rate 8 mm/hr (0-30)
[2020-11-11 10:32] LABS: Alanine Aminotransferase 26 U/L (12-78); Albumin Level 4.1 g/dl (3.5-5.0); Albumin/Globulin Ratio 1.5 (1.1-1.8); Alkaline Phosphatase 99 U/L (38-126); Anion Gap 15.2 mEq/L (5-15); Aspartate Amino Transferase 25 U/L (14-36); Bilirubin,Total 0.4 mg/dl (0.2-1.3); Blood Urea Nitrogen 22 mg/dl (7-17); Calcium 9.7 mg/dl (8.4-10.2); Carbon Dioxide 30 mmol/L (22.0-30.0); Chloride 102 mmol/L (98-107); Estimated Glomerular Filt Rate 72 ml/min (>60); GFR (African American) 87 ML/MIN (>60); Globulin 2.7 g/dL (1.3-3.2); Glucose 101 mg/dl (74-100); Potassium 4.2 mmoL/L (3.5-5.1); Sodium 143 mmol/L (136-145); Total Protein,Serum 6.8 g/dl (6.3-8.2)
[2020-11-11 10:38] LABS: C-Reactive Protein 1.9 mg/L (0-4)
[2020-11-11 10:48] LABS: 25-OH Vitamin D, Total 44.4 ng/mL (30-100)
== END ==
PROVIDERS: Visit Provider Nurse Practitioner Family
DX: M06.9 Rheumatoid arthritis, unspecified (principal); E55.9 Vitamin D deficiency, unspecified; Z79.899 Other long term (current) drug therapy
CPT/HCPCS: 36415; 80053; 82306; 85025; 85651; 86140

== ENCOUNTER → 2020-11-30 07:45 | Outpatient (CLI) | payer BC, SELFPAY ==
[2020-11-30 08:35] VITALS: PULSE 61; PULSE 68
== END ==
PROVIDERS: PCP Family Medicine; Visit Provider Family Medicine
DX: R06.00 Dyspnea, unspecified (principal)
CPT/HCPCS: 94060; 94618; 94640; 94726; 94729

== ENCOUNTER → 2020-12-22 09:01 | Outpatient (CLI) | payer BC, SELFPAY ==
--- NOTE | 2020-12-22 09:02 | CT_ITS ---
PROCEDURE: CT LUNG SCREENING CLINICAL INDICATION: lung cancer screening COMPARISON: No exams were available for comparison TECHNIQUE: The exam was performed on a GE Light Speed [address] scanner using 2.90 mGy CTDI. A low dose helical CT CHEST was performed on a multi-detector scanner. All CT scans at the facility use one or more dose reduction, viz: automated exposure control, ma/kV adjustment per patient size (including targeted exams where dose is matched to indication, i.e. head), or iterative reconstruction technique. The LDCT was performed in a facility that meets the criteria for the screening program. Data regarding this exam was submitted to ACR which is an approved registry. The order for this exam indicates that it came as a result of a lung cancer screening counseling shard decision-making visit that included all the elements required of such a visit including smoking cessation. The radiologist interpreting this exam meets the CMS criteria for the LDCT lung cancer screening program. The exam is reported using the Lung-RADS classification scale and reported to the ACR registry. NOTE: This study was performed for the specific purposes of lung cancer screening and is not an alternative to diagnostic chest CT. RADIATION DOSE: CTDI vol(CT dose Index-volume) = 2.90mG DLP (Dose Length Product) = 106.81 mGcm FINDINGS: COPD with scattered areas of scarring with centrilobular emphysema. There are 2 nodules in the right lower lobe medially adjacent to 1 another at 5 and 4 mm. The 5 mm nodule may be partially calcified. There is a 5 mm nodule in the left lower lobe along the hemidiaphragm region. There are few scattered small pneumatoceles. No mediastinal or hilar mass or adenopathy. OTHER FINDINGS: Coronary artery calcifications. Bilateral breast implants with capsular calcification. Curvilinear thin area of increased density with some minimal calcification along the posterior aspect of the right implant consistent with an intracapsular rupture IMPRESSION: Lung-RADS Category 2 Benign Appearance or Behavior regarding bilateral nodules. Follow-up: [address] Chest without contrast. Bilateral breast implant fibrous capsule calcification with right intracapsular rupture Dictated by: Nav Jolley MD 12/28/2020 10:02 Nav Jolley MD in [place] 12/28/2020 10:02
== END ==
PROVIDERS: PCP Family Medicine; Visit Provider Internal Medicine Pulmonary Disease
DX: Z87.891 Personal history of nicotine dependence (principal); Z12.2 Encounter for screening for malignant neoplasm of respiratory organs
CPT/HCPCS: 71271

== ENCOUNTER → 2021-02-16 11:50 | Outpatient (CLI) | payer BC, SELFPAY ==
[2021-02-17 10:16] LABS: Hep A Ab, IgM Negative (Negative); Hepatitis B Core Antibody IgM Negative (Negative); Hepatitis B Surface Antigen Negative (Negative); Hepatitis C Antibody <0.1 s/co ratio (0.0-0.9)
[2021-02-19 05:09] LABS: QuantiFERON-TB Gold Plus Negative (Negative)
== END ==
PROVIDERS: Visit Provider Internal Medicine Rheumatology
DX: C57.8 Malignant neoplasm of overlapping sites of female genital organs (principal); G51.0 Bell's palsy; I48.91 Unspecified atrial fibrillation; E55.9 Vitamin D deficiency, unspecified; H04.551 Acquired stenosis of right nasolacrimal duct
CPT/HCPCS: 36415; 80074; 86480

== ENCOUNTER → 2021-05-11 10:52 | Outpatient (CLI) | payer MEDICARE, BC, SELFPAY ==
[2021-05-11 11:47] LABS: Basophils # 0.1 K/mm3 (0-0.2); Basophils % 1.3 % (0.1-2.0); Eosinophils # 0.2 K/mm3 (0.0-0.4); Eosinophils % 2.5 % (0.1-12.0); Hematocrit 50.6 % (37.0-47.0); Hemoglobin 16.4 g/dL (12.2-16.2); Lymphocytes # 1.7 K/mm3 (0.7-4.5); Lymphocytes % 24.5 % (10-50); Mean Corpuscular HGB Conc 32.5 g/dL (31.8-35.4); Mean Corpuscular Hemoglobin 31.8 pg (27.0-31.2); Mean Platelet Volume 9.5 fl (7.4-10.4); Monocytes # 0.4 K/mm3 (0.1-1.0); Monocytes % 6.1 % (1.7-9.3); Neutrophils # 4.4 K/mm3 (1.8-7.8); Neutrophils % 65.6 % (37.0-80.0); Platelet Count 169 K/mm3 (142-424); Red Blood Count 5.16 M/mm3 (4.20-5.40); Red Cell Distribution Width 13.6 % (11.5-17.5); White Blood Count 6.7 K/mm3 (4.8-10.8)
[2021-05-11 12:29] LABS: Erythrocyte Sedimentation Rate 31 mm/hr (0-30)
[2021-05-11 13:00] LABS: Alanine Aminotransferase 31 U/L (12-78); Albumin Level 4.2 g/dl (3.5-5.0); Albumin/Globulin Ratio 1.8 (1.1-1.8); Alkaline Phosphatase 75 U/L (38-126); Anion Gap 11.5 mEq/L (5-15); Aspartate Amino Transferase 26 U/L (14-36); Bilirubin,Total 0.5 mg/dl (0.2-1.3); Blood Urea Nitrogen 22 mg/dl (7-17); Calcium 9.3 mg/dl (8.4-10.2); Carbon Dioxide 32 mmol/L (22.0-30.0); Chloride 102 mmol/L (98-107); Estimated Glomerular Filt Rate 63 ml/min (>60); GFR (African American) 76 ML/MIN (>60); Globulin 2.3 g/dL (1.3-3.2); Glucose 99 mg/dl (74-100); Potassium 4.5 mmoL/L (3.5-5.1); Sodium 141 mmol/L (136-145); Total Protein,Serum 6.5 g/dl (6.3-8.2)
== END ==
PROVIDERS: Visit Provider Internal Medicine Rheumatology
DX: C57.8 Malignant neoplasm of overlapping sites of female genital organs (principal); E55.9 Vitamin D deficiency, unspecified; G51.0 Bell's palsy; H04.551 Acquired stenosis of right nasolacrimal duct; I48.91 Unspecified atrial fibrillation
CPT/HCPCS: 36415; 80053; 85025; 85651; 86140

== ENCOUNTER → 2021-06-03 09:47 | Outpatient (CLI) | payer MEDICARE, BC, SELFPAY ==
[2021-06-03 10:05] LABS: Basophils # 0.1 K/mm3 (0-0.2); Basophils % 1.2 % (0.1-2.0); Eosinophils # 0.1 K/mm3 (0.0-0.4); Eosinophils % 1.8 % (0.1-12.0); Hematocrit 50.4 % (37.0-47.0); Hemoglobin 16.6 g/dL (12.2-16.2); Lymphocytes # 1.8 K/mm3 (0.7-4.5); Lymphocytes % 23.2 % (10-50); Mean Corpuscular HGB Conc 32.9 g/dL (31.8-35.4); Mean Corpuscular Hemoglobin 31.9 pg (27.0-31.2); Mean Corpuscular Volume 97.1 fl (81-99); Mean Platelet Volume 9.1 fl (7.4-10.4); Monocytes # 0.5 K/mm3 (0.1-1.0); Monocytes % 6.6 % (1.7-9.3); Neutrophils # 5.1 K/mm3 (1.8-7.8); Neutrophils % 67.2 % (37.0-80.0); Platelet Count 193 K/mm3 (142-424); Red Cell Distribution Width 13.5 % (11.5-17.5); White Blood Count 7.5 K/mm3 (4.8-10.8)
[2021-06-03 10:17] LABS: Chloride 103 mmol/L (98-107); Sodium 140 mmol/L (136-145)
[2021-06-03 10:18] LABS: Potassium 4.7 mmoL/L (3.5-5.1)
[2021-06-03 10:20] LABS: Blood Urea Nitrogen 21 mg/dl (7-17); Estimated Glomerular Filt Rate 56 ml/min (>60); GFR (African American) 67 ML/MIN (>60)
[2021-06-03 10:21] LABS: Anion Gap 9.7 mEq/L (5-15); Calcium 9.4 mg/dl (8.4-10.2); Carbon Dioxide 32 mmol/L (22.0-30.0); Glucose 91 mg/dl (74-100)
[2021-06-03 10:36] LABS: Troponin I < 0.01 ng/ml (0.00-0.034)
== END ==
PROVIDERS: PCP Family Medicine; Visit Provider Nurse Practitioner Family
DX: E78.2 Mixed hyperlipidemia (principal); G47.33 Obstructive sleep apnea (adult) (pediatric); I10 Essential (primary) hypertension; I48.0 Paroxysmal atrial fibrillation; R06.02 Shortness of breath; R07.89 Other chest pain; I63.9 Cerebral infarction, unspecified
CPT/HCPCS: 36415; 80048; 84484; 85025

== ENCOUNTER → 2021-06-04 14:38 | Outpatient (CLI) | payer MEDICARE, BC, SELFPAY ==
--- NOTE | 2021-06-04 14:38 | CT_ITS ---
FINAL REPORT TECHNIQUE: Axial images were obtained through the chest without contrast. This study was performed with techniques to keep radiation doses as low as reasonably achievable (ALARA). Individualized dose reduction techniques using automated exposure control or adjustment of mA and/or kV according to the patient's size were employed. CLINICAL HISTORY: Lung nodule F/U COMPARISON: 12/22/2020 FINDINGS: There are bilateral peripherally calcified subglandular breast implants. The heart size is normal. There is no pericardial or pleural effusion. Limited images of the upper abdomen are unremarkable. There are 3 nodules in the right lower lobe. Two of the nodules are small and contiguous measuring approximately 3 mm. These are well seen on image #131. The larger more posterior nodule measures 7 mm in diameter and contains some central calcification. This is well-seen on image 136 of series 3. There is a small nodule at the left base measuring 5 mm. This is well-seen on image #181 of series 3. A few scattered pneumatoceles are identified. IMPRESSION: Bibasilar nodules as detailed above, all similar to previous and stable. Recommend continued follow-up in one year to evaluate for stability. Reviewed, Interpreted and Dictated by Conrad Hunt MD Transcribed by Prema Cheng Authenticated by Conrad Hunt MD on 06/04/2021 03:12:13 PM [facility]
== END ==
PROVIDERS: PCP Family Medicine; Visit Provider Internal Medicine Pulmonary Disease
DX: R91.8 Other nonspecific abnormal finding of lung field (principal)
CPT/HCPCS: 71250

== ENCOUNTER 2021-06-05 20:50 | Emergency (ER) | payer MEDICARE, BC, SELFPAY ==
--- NOTE | 2021-06-05 20:47 | ECG_ITS ---
APPROVED REPORT Exam: Resting ECG HR:82 bpm ECG Measurements Heart Rate 82 AXES LA 148 P 79 QRSd 108 QRS 102 QT 370 T 56 QTc 408 Conclusion SINUS RHYTHM RIGHT AXIS DEVIATION [QRS AXIS > 100] ABNORMAL ECG UNCONFIRMED REPORT Electronically signed by : Nato Boyd MD 06/06/2021 07:43:51
[2021-06-05 20:51] VITALS: BP 169/91; PULSE 83; RESP 18; TEMP 37.2; O2SAT 94; BMI 28.3
[2021-06-05 21:00] VITALS: BP 141/98; PULSE 81; RESP 19; O2SAT 92
[2021-06-05 21:06] LABS: Basophils # 0.2 K/mm3 (0-0.2); Basophils % 2.5 % (0.1-2.0); Eosinophils # 0.2 K/mm3 (0.0-0.4); Eosinophils % 2.3 % (0.1-12.0); Hematocrit 49.9 % (37.0-47.0); Hemoglobin 15.8 g/dL (12.2-16.2); Lymphocytes % 24.6 % (10-50); Mean Corpuscular HGB Conc 31.7 g/dL (31.8-35.4); Mean Corpuscular Hemoglobin 31.5 pg (27.0-31.2); Mean Corpuscular Volume 99.4 fl (81-99); Mean Platelet Volume 9.9 fl (7.4-10.4); Monocytes # 0.4 K/mm3 (0.1-1.0); Monocytes % 5.6 % (1.7-9.3); Neutrophils # 5.2 K/mm3 (1.8-7.8); Neutrophils % 65.1 % (37.0-80.0); Platelet Count 153 K/mm3 (142-424); Red Blood Count 5.02 M/mm3 (4.20-5.40); Red Cell Distribution Width 13.8 % (11.5-17.5)
--- NOTE | 2021-06-05 21:14 | HMH.EDGENADL ---
ED Disposition Clinical Impression: Shingles Qualifiers: Herpes zoster complications: without complications Qualified Code(s): B02.9 - Zoster without complications Disposition: Home, Self-Care Condition on Discharge: Good Instructions: DI for Shingles Additional Instructions: use meds and call pcp for follow up Prescriptions: Acyclovir 800 mg PO QID #28 tab Transmission Status: Pending to [id number] predniSONE [Prednisone 20mg Tab] 20 mg PO BID #10 tab Transmission Status: Pending to [id number] Referrals: Jake Tristan MD [Primary Care Provider] - - Critical Care Critical Care Time: No Attestation: On 06/05/21, the high probability of a clinically significant, sudden or life threatening deterioration of the following system(s) required my full and direct attention, intervention and personal management. The time I documented below is in addition to time spent performing reported procedures but includes the following listed in this critical care notation. Medical Decision Making - Medical Records Medical records reviewed: Yes: I reviewed the patient's medical records. - Caleb Inquiry Pt receiving controlled substance: No Vital Signs: 06/05/21 20:51 06/05/21 21:00 Temperature 98.9 F Temperature Source Oral Pulse Rate 81 Pulse Rate [Left Radial] 83 Respiratory Rate 18 19 Blood Pressure 141/98 H Blood Pressure [Right Arm] 169/91 H Blood Pressure Mean [Right Arm] 117 02 Sat by Pulse Oximetry 94 L 92 L Oxygen Delivery Method Room Air Room Air - Lab Data Lab results reviewed: Yes: I reviewed the patient's lab results. Lab Results 06/05/21 20:57: WBC 8.0, RBC 5.02, Hgb 15.8, Hct 49.9 H, MCV 99.4 H, MCH 31.5 H, MCHC 31.7 L, RDW 13.8, Plt Count 153, MPV 9.9, Neut % (Auto) 65.1, Lymph % (Auto) 24.6, [place] % (Auto) 5.6, Eos % (Auto) 2.3, Baso % (Auto) 2.5 H, Neut # (Auto) 5.2, Lymph # (Auto) 2.0, [place] # (Auto) 0.4, Eos # (Auto) 0.2, Baso # (Auto) 0.2 Result diagrams: 06/05/21 20:57 Orders (Tests/Meds): ED MEDICATIONS Generic Name Dose Route Start Last Admin Trade Name Freq PRN Reason Stop Dose Admin Sodium Chloride 1,000 mls @ 999 mls/hr 06/05/21 21:00 06/05/21 21:06 Sod Chlor 0.9% 1000ml Bag IV 06/05/21 22:00 Not Given .Q1H1M TALIB Sodium Chloride 8 ml 06/05/21 20:59 Sodium Chloride 0.9% 10ml Vial IV 07/05/21 20:58 NEEDED PRN dilute pepcid Discontinued Medications Generic Name Dose Route Start Last Admin Trade Name Freq PRN Reason Stop Dose Admin Acyclovir 800 mg 06/05/21 21:05 Acyclovir 400mg Tab PO 06/05/21 21:06 ONCE ONE Aspirin 243 mg 06/05/21 20:58 06/05/21 21:11 Aspirin 81mg Chewable Tablet PO 06/05/21 20:59 Not Given ONCE ONE Famotidine 20 mg 06/05/21 20:59 06/05/21 21:04 Famotidine 20mg/2ml Vial IV 06/05/21 21:00 Not Given ONCE ONE Ketorolac Tromethamine 30 mg 06/05/21 21:03 Ketorolac 30mg/Ml Vial IV 06/05/21 21:04 ONCE ONE Methylprednisolone Sodium Succinate 125 mg 06/05/21 21:05 Methylprednisolone Sod Succ 125mg Vial IV 06/05/21 21:06 ONCE ONE ORDERS Category Date Time Status XR chest 2V Stat Exams 06/05/21 20:58 Ordered Basic Metabolic Panel Stat Lab 06/05/21 20:57 Received Blood alcohol [Ethyl Alcohol] Stat Lab 06/05/21 20:57 Received C-Reactive Protein Stat Lab 06/05/21 20:57 Received Procalcitonin Stat Lab 06/05/21 20:57 Received Troponin I Q3H Lab 06/05/21 23:58 Ordered Troponin I Q3H Lab 06/06/21 02:58 Ordered Troponin I Stat Lab 06/05/21 20:57 Received - ECG Data Tracing #1 Normal Sinus Rhythm: Yes Ischemic changes: non-specific ST-T wave changes Medical Decision Narrative: pt with shingles and will need steroids and antivirals General Adult HPI - General Chief complaint: PAIN Stated complaint: CHEST PAIN Time Seen by Provider: 06/05/21 21:14 Mode of Arrival: Ambulatory Source [facility] [employer]
[2021-06-05 21:15] VITALS: BP 155/73; PULSE 69; RESP 22; TEMP 36.7; O2SAT 93
[2021-06-05 21:17] LABS: Chloride 105 mmol/L (98-107)
[2021-06-05 21:18] LABS: Sodium 140 mmol/L (136-145)
[2021-06-05 21:21] LABS: Blood Urea Nitrogen 25 mg/dl (7-17); Calcium 8.7 mg/dl (8.4-10.2); Carbon Dioxide 28 mmol/L (22.0-30.0); Creatinine Clearance Estimated 62 mL/min (50-200); Estimated Glomerular Filt Rate 50 ml/min (>60); GFR (African American) 60 ML/MIN (>60); Glucose 96 mg/dl (74-100)
[2021-06-05 21:26] LABS: C-Reactive Protein 3.5 mg/L (0-4)
[2021-06-05 21:30] VITALS: BP 117/66; PULSE 70; RESP 17; O2SAT 90
[2021-06-05 21:33] LABS: Ethyl Alcohol < 10 mg/dl (0-10)
[2021-06-05 21:38] LABS: Troponin I < 0.01 ng/ml (0.00-0.034)
[2021-06-05 21:40] LABS: Procalcitonin 0.053 ng/mL (0.0-2.0)
[2021-06-05 21:42] VITALS: BP 117/66; PULSE 71; RESP 18; TEMP 36.7; O2SAT 95
== END 2021-06-05 21:44 | disposition home or self-care (01) ==
PROVIDERS: Emergency Provider Emergency Medicine; PCP Family Medicine
DX: B02.9 Zoster without complications (principal); I48.0 Paroxysmal atrial fibrillation; J44.9 Chronic obstructive pulmonary disease, unspecified; E78.5 Hyperlipidemia, unspecified; I10 Essential (primary) hypertension; R00.2 Palpitations; F17.210 Nicotine dependence, cigarettes, uncomplicated
CPT/HCPCS: 80048; 84145; 84484; 85025; 86140; 93005; 96374; 96375; 99284

== ENCOUNTER → 2021-09-17 09:39 | Outpatient (CLI) | payer MEDICARE, BC, SELFPAY ==
[2021-09-17 10:40] LABS: Basophils # 0.1 K/mm3 (0-0.2); Basophils % 1.5 % (0.1-2.0); Eosinophils # 0.2 K/mm3 (0.0-0.4); Eosinophils % 2.1 % (0.1-12.0); Hematocrit 51.3 % (37.0-47.0); Hemoglobin 16.3 g/dL (12.2-16.2); Lymphocytes # 1.8 K/mm3 (0.7-4.5); Lymphocytes % 23.7 % (10-50); Mean Corpuscular HGB Conc 31.9 g/dL (31.8-35.4); Mean Corpuscular Hemoglobin 31.8 pg (27.0-31.2); Mean Platelet Volume 8.9 fl (7.4-10.4); Monocytes # 0.5 K/mm3 (0.1-1.0); Monocytes % 6.1 % (1.7-9.3); Neutrophils % 66.6 % (37.0-80.0); Platelet Count 213 K/mm3 (142-424); Red Blood Count 5.13 M/mm3 (4.20-5.40); Red Cell Distribution Width 13.9 % (11.5-17.5); White Blood Count 7.5 K/mm3 (4.8-10.8)
[2021-09-17 10:51] LABS: Alanine Aminotransferase 19 U/L (12-78); Albumin/Globulin Ratio 1.7 (1.1-1.8); Alkaline Phosphatase 80 U/L (38-126); Anion Gap 13.2 mEq/L (5-15); Aspartate Amino Transferase 20 U/L (14-36); Bilirubin,Total 0.2 mg/dl (0.2-1.3); Blood Urea Nitrogen 24 mg/dl (7-17); Calcium 9.5 mg/dl (8.4-10.2); Carbon Dioxide 30 mmol/L (22.0-30.0); Chloride 101 mmol/L (98-107); Estimated Glomerular Filt Rate 56 ml/min (>60); GFR (African American) 67 ML/MIN (>60); Globulin 2.4 g/dL (1.3-3.2); Glucose 106 mg/dl (74-100); Potassium 4.2 mmoL/L (3.5-5.1); Sodium 140 mmol/L (136-145); Total Protein,Serum 6.4 g/dl (6.3-8.2)
[2021-09-17 11:28] LABS: Erythrocyte Sedimentation Rate 9 mm/hr (0-30)
[2021-09-17 12:10] LABS: C-Reactive Protein 2.5 mg/L (0-4)
== END ==
PROVIDERS: PCP Family Medicine; Visit Provider Nurse Practitioner Family
DX: M06.9 Rheumatoid arthritis, unspecified (principal); Z79.899 Other long term (current) drug therapy
CPT/HCPCS: 36415; 80053; 85025; 85651; 86140

== ENCOUNTER → 2022-05-23 14:20 | Outpatient (CLI) | payer MEDICARE, BC, SELFPAY ==
--- NOTE | 2022-05-23 14:25 | MR_ITS ---
FINAL REPORT CLINICAL HISTORY: SYNOVIAL CYST OF LEFT KNEE. POSTERIOR AND LATERAL SIDED KNEE PAIN. NO INJURY OR TRAUMA. KNEE INSTABILITY. FINDINGS: Multiplanar MR imaging of the left knee was performed without contrast. The medial and lateral menisci are intact without evidence of meniscal tear. The anterior and posterior cruciate ligaments are intact. The medial collateral ligament and lateral ligamentous complex are intact. There is distal patellar tendinitis. No tendon tear is identified. There is no evidence of fracture. There is mild chondromalacia. A small joint effusion is seen. The musculature is intact. There is a small popliteal cyst. IMPRESSION: Distal patellar tendinitis without tendon tear. Mild chondromalacia with small joint effusion and small popliteal cyst. Reviewed, Interpreted and Dictated by Jono Hayes III, MD Transcribed by Kita Nunez Authenticated and [facility]
== END ==
PROVIDERS: PCP Family Medicine; Visit Provider Family Medicine
DX: M71.22 Synovial cyst of popliteal space [Baker], left knee (principal)
CPT/HCPCS: 73721

== ENCOUNTER → 2022-06-17 15:21 | Outpatient (CLI) | payer MEDICARE, BC, SELFPAY ==
--- NOTE | 2022-06-17 15:21 | CT_ITS ---
FINAL REPORT CLINICAL HISTORY: lung cancer screening, smokes 1/2 pk per day x 40 yrs copd COMPARISON: December 22, 2020 and June 04, 2021 FINDINGS: Low-Dose Chest CT Axial images were obtained from the lung apex to the mid abdomen by computed tomography. Low-dose protocol was utilized. CTDI vol (mGy): 2.90 DLP (mGy-cm): 111.25 There are bilateral subglandular breast implants. There is no axillary adenopathy. There is no hilar or mediastinal adenopathy. The heart is proper size. There is no pericardial or pleural effusion. Lung window images demonstrate moderate changes of centrilobular emphysema. Again seen is a nodule in the posteromedial right lung measuring 6 mm, stable. There is some bulla or pneumatocele is in the lung bases which are stable. Limited images of the upper abdomen demonstrate low-attenuation foci on the right kidney which is probably due to benign cysts. IMPRESSION: Stable nodule in the medial right lung base. No new nodule identified. Lung RADS category 2. Recommend 12 month follow-up low-dose chest CT. Reviewed, Interpreted and Dictated by Conrad Hunt MD Transcribed by Serene Ornelas Authenticated and [facility]
== END ==
PROVIDERS: PCP Family Medicine; Visit Provider Internal Medicine Pulmonary Disease
DX: Z87.891 Personal history of nicotine dependence (principal); Z12.2 Encounter for screening for malignant neoplasm of respiratory organs
CPT/HCPCS: 71271

== ENCOUNTER → 2022-07-15 09:43 | Outpatient (CLI) | payer MEDICARE, BC, SELFPAY ==
[2022-07-15 10:19] LABS: Basophils # 0.1 K/mm3 (0-0.2); Basophils % 1.2 % (0.1-2.0); Eosinophils # 0.2 K/mm3 (0.0-0.4); Hematocrit 47.2 % (37.0-47.0); Lymphocytes # 1.4 K/mm3 (0.7-4.5); Lymphocytes % 23.1 % (10-50); Mean Corpuscular HGB Conc 31.8 g/dL (31.8-35.4); Mean Corpuscular Volume 97.2 fl (81-99); Mean Platelet Volume 8.4 fl (7.4-10.4); Monocytes # 0.3 K/mm3 (0.1-1.0); Monocytes % 5.6 % (1.7-9.3); Neutrophils % 67.1 % (37.0-80.0); Platelet Count 159 K/mm3 (142-424); Red Blood Count 4.85 M/mm3 (4.20-5.40); Red Cell Distribution Width 13.9 % (11.5-17.5)
[2022-07-15 10:48] LABS: Erythrocyte Sedimentation Rate 26 mm/hr (0-30)
[2022-07-15 10:57] LABS: Chloride 99 mmol/L (98-107); Potassium 3.8 mmoL/L (3.5-5.1); Sodium 141 mmol/L (136-145)
[2022-07-15 11:00] LABS: Alanine Aminotransferase 25 U/L (12-78); Albumin Level 3.9 g/dl (3.5-5.0); Albumin/Globulin Ratio 1.7 (1.1-1.8); Alkaline Phosphatase 86 U/L (38-126); Anion Gap 14.8 mEq/L (5-15); Aspartate Amino Transferase 24 U/L (14-36); Bilirubin,Total 0.4 mg/dl (0.2-1.3); Blood Urea Nitrogen 16 mg/dl (7-17); Calcium 9.2 mg/dl (8.4-10.2); Carbon Dioxide 31 mmol/L (22.0-30.0); Estimated Glomerular Filt Rate 63 ml/min (>60); GFR (African American) 76 ML/MIN (>60); Globulin 2.3 g/dL (1.3-3.2); Glucose 92 mg/dl (74-100); Total Protein,Serum 6.2 g/dl (6.3-8.2)
[2022-07-15 11:06] LABS: C-Reactive Protein 4.4 mg/L (0-4)
== END ==
PROVIDERS: PCP Family Medicine; Visit Provider Internal Medicine Rheumatology
DX: C57.8 Malignant neoplasm of overlapping sites of female genital organs (principal); G51.0 Bell's palsy; I48.91 Unspecified atrial fibrillation; M06.9 Rheumatoid arthritis, unspecified; M85.50 Aneurysmal bone cyst, unspecified site
CPT/HCPCS: 36415; 80053; 85025; 85651; 86140

== ENCOUNTER → 2022-10-03 07:56 | Outpatient (CLI) | payer MEDICARE, BC, SELFPAY ==
--- NOTE | 2022-10-03 07:56 | CT_ITS ---
FINAL REPORT TECHNIQUE: Multiple axial CT angiography images were performed from the foramen magnum to the vertex before and during IV contrast administration. This study was performed with techniques to keep radiation doses as low as reasonably achievable (ALARA). Individualized dose reduction techniques using automated exposure control or adjustment of mA and/or kV according to the patient's size were employed. CLINICAL HISTORY: encounter for therapeutic drug level monitoring COMPARISON: None FINDINGS: Multiple axial CT angiography images were performed from the foramen magnum to the vertex before and during IV contrast administration. This study was performed with techniques to keep radiation doses as low as reasonably achievable (ALARA). Individualized dose reduction techniques using automated exposure control or adjustment of mA and/or kV according to the patient's size were employed. CT HEAD: No abnormal density is seen. Ventricles are normal. There is no hemorrhage. No mass effect is seen. Bone windows show no evidence of fracture. IMPRESSION: No acute intracranial abnormality. CTA HEAD: Thin section axial CT with contrast with 3D MIP reconstruction. No aneurysm is seen. Major intracranial vessels are patent without significant stenosis. IMPRESSION: Unremarkable. Reviewed, Interpreted and Dictated by Jake Branham MD Transcribed by Luna Mancuso Authenticated and [facility]
[2022-10-03 08:19] LABS: Blood Urea Nitrogen 27 mg/dl (7-17); Estimated Glomerular Filt Rate 55 ml/min (>60); GFR (African American) 67 ML/MIN (>60)
== END ==
PROVIDERS: PCP Family Medicine; Visit Provider Internal Medicine
DX: E78.5 Hyperlipidemia, unspecified (principal); G47.33 Obstructive sleep apnea (adult) (pediatric); I10 Essential (primary) hypertension; I48.0 Paroxysmal atrial fibrillation; Z51.81 Encounter for therapeutic drug level monitoring; Z79.01 Long term (current) use of anticoagulants; Z79.899 Other long term (current) drug therapy; Z82.49 Family history of ischemic heart disease and other diseases of the circulatory system
CPT/HCPCS: 36415; 70496; 82565; 84520; Q9967

== ENCOUNTER → 2022-10-04 06:09 | Outpatient (CLI) | payer MEDICARE, BC, SELFPAY ==
--- NOTE | 2022-10-04 | CA_ITS ---
APPROVED REPORT Exam: Pharmacologic Technologist: Reba Velasquez, Ht: 5 ft 5 in Wt: 161 lbs BSA: 1.80 m2 HR: 61 bpm BP: 127/72 mmHg Rhythm: Sinus rhythm Medical History Medications: Aspirin,,,,, Flecainide,,,,, Atorvastatin,,,,, Albuterol,,,,, ZYRTEC,,,,, ElIQUIS,,,,, Pantroprazole,,,,, Lisinopri/HCTZ,,,,, ETanercept,,,,, Isosorbide Monoitrate,,,,, Hydroxychlorquine,,,,, Cardiac Risk Factors: HTN, Hyperlipidemia, FHX of CAD, Smoking Stress Test Details Test: LEXISCAN HR Resting HR: 63 bpm Max Heart Rate (APMHR): 154 bpm Max HR Achieved: 83 bpm Target HR (85% APMHR): 131 bpm % of APMHR: 54 Recovery HR: 73 bpm HR response to stress: Normal HR response to stress BP Resting BP: 127.0/72 mmHg Max BP: 141/70 mmHg Recovery BP: 132.0/71.0 mmHg BP response to stress: Normal blood pressure response to stress. ECG Resting ECG: sinus rhythm Stress ECG: No change Arrhythmia: None Clinical Exercise duration: 04:09 min Highest Stage Achieved: Exercise capacity: 1.0 METs Stress ECG Conclusion During lexiscan pt experinced nausea, light headed, and headache. No arrhythmias noted. No significant ST changes with stress CONCLUSION: Unremarkable lexiscan stress test Myoview images are reported separately Test Summary REST . . . . . . . Sitting REST 12:18 . . 63 . 127/ 72 . . Stage 1 . . . . . . . Myoview Injected Stage 1 01:00 . . 71 . . . . Stage 2 01:00 . . 82 . 125/ 64 . . Stage 3 01:00 . . 81 . 136/ 65 . . Stage 4 01:00 . . 79 . 136/ 68 . . Stage 4 01:09 . . 80 . 136/ 68 . Stop exercise at 04:09 RECOVERY 01:00 . . 74 . . . . RECOVERY 02:00 . . 69 . 132/ 71 . . RECOVERY 03:00 . . 0 . 141/ 70 . . RECOVERY 03:04 . . 0 . 141/ 70 . . Electronically signed by : Sheba Chin, 10/05/2022 10:36:59
--- NOTE | 2022-10-04 06:14 | NM_ITS ---
APPROVED REPORT Exam: Nuclear Stress Test Indication: a-fib..abn ecg..hypertension..high cholesterol..tobacco use..family hx Patient Location: Outpatient Stress Tech: Reba AN Tech:Massiel SierraJEANETTE RT(R)(N) Ht: 5 ft 5 in Wt: 161 lbs Bra Size: 36b HR: 63 bpm BP: 127/72 mmHg BSA: 1.80 m2 Rhythm: NSR TID: 1.00 BMI: 26.7 History: a-fib..abn ecg..hypertension..high cholesterol..tobacco use..family hx Procedure: Patient received 0.4 mg of intravenous Lexiscan, resting heart rate 63 bpm, resting blood pressure 127/72 mmHg, with Lexiscan maximum heart rate achieved was 83 bpm which is 85 % of the maximum predicted heart rate and blood pressure was 141/70 mmHg. With Lexiscan, patient denied any complaint of chest pain. Cardiac Stress and Resting SPECT Images: Cardiac Stress and Resting SPECT images were obtained using technetium 99m Myoview 31.3 mCi stress and 10.74 mCi at rest. Resting and stress imaging in supine position demonstrate a medium-sized, moderate, fixed perfusion defect in the basal to mid anterior LV wall. This is no longer visualized with prone stress imaging. Findings are suggestive of soft tissue attenuation. Gated imaging demonstrates normal global and regional LV systolic function. LVEF is calculated at 62%. Conclusion: Resting and stress imaging in supine position demonstrate a medium-sized, mild, fixed perfusion defect in the basal to mid anterior LV wall. This is no longer visualized with prone stress imaging. Findings are suggestive of soft tissue attenuation. Gated imaging demonstrates normal global and regional LV systolic function. LVEF is calculated at 62%. Electronically signed by : Sheba Chin, 10/05/2022 11:16:36
--- NOTE | 2022-10-04 07:14 | CA_ITS ---
APPROVED REPORT EXAM: Comprehensive 2D, Doppler, and color-flow Echocardiogram Corduroy Brusher Operator: Sondra De La Rosa, CAYDEN, RVS Ht: 5 ft 5 in Wt: 161lbs BSA: 1.80 HR: 86 bpm BP: 108/65 mmHg Rhythm: NSR Indications: Abn ekg, afib, MOLLY, CAD, Smoker 2D Dimensions IVSd 0.68 cm F: 0.6-1.0 LVEF (Visual) 56.90 % PWd 0.76 cm F: 0.6 - 1.0 LA Volume 58.00 mL LVDd 4.69 cm F: 3.9 - 5.3 LA Volume Index 32.04 mL/m2 (M/F) 16-34 LVDs 3.86 cm F: 2.2 - 3.5 Aortic Root 2.98 cm F: 2.7 - 3.3 Left Atrium 3.56 cm F: 2.7 - 3.8 LVOT 2.03 cm (M/F) 1.5-2.5 M-Mode Dimensions RVDd 2.38 cm (0.9-2.6) LA Diam 3.67 cm (1.9-4.0) LVDd 5.00 cm (3.5-5.7) Ao Diam 3.36 cm (2.0-3.7) LVDs 3.68 cm (3.5-5.7) IVSd 0.70 cm (0.6-1.1) PWd 0.97 cm (0.6-1.1) EF (Teich) 56.10% EPSs 0.30 cm FS 29.50% EDV (Teich) 130.70 mL TAPSE 2.62 (<1.7) ESV (Teich) 57.40 mL LV Diastology E Decel Time 233.00 (160-240 msec) E/A Ratio 1.0 MED E' 6.80 (< 7 cm/sec) MED A' 11.90 cm/s E'/MED E' Ratio 9.59 (>14) LAT E' 7.20 (<10 cm/sec) LAT A' 12.80 cm/s E/LAT E' Ratio 9.06 (>14) Aortic Valve LVOT Max 120.00 (70-110 cm/s) LVOT VTI 29.07 cm AoV Peak Garrett. 157.00 (50-130 cm/s) AO Peak GR. 9.90 mmHg AO Mean GR. 4.90 (<5 mmHg) AO VTI 35.90 (18-25 cm) NOEMI (VTI) 2.62 (2.5-4.5 cm2) Mitral Valve MV E Max Garrett. 65.00 (40-130 cm/s) MV A Velocity 65.00 (40-130 cm/s) E/A Ratio 1.00 MV Decel. Time 233.00 (160-240 ms) MV Mean Gr. 2.00 (<2mmHg) Pulmonary Valve PV Peak Velocity 91.00 (50-150 cm/s) Left Ventricle The left ventricle is normal size. There is increased left ventricular wall thickness. There is normal left ventricular systolic function. LVEF is 65%. The left ventricular diastolic function is normal. Right Ventricle The right ventricle is normal in size and function. Atria The left atrium size is normal. No Doppler evidence for an atrial septal defect. Aortic Valve The aortic valve is mildly thickened. Aortic valve is trileaflet. Trace aortic regurgitation. Mitral Valve The mitral valve is normal in structure. There is no mitral valve regurgitation noted. Tricuspid Valve The tricuspid valve is normal in structure. Trace tricuspid regurgitation. RVSP is normal. Pulmonic Valve The pulmonary valve is normal in structure. Mild pulmonic regurgitation. Great Vessels The aortic root is normal in size. The ascending aorta is normal in size. Pericardium There is no pericardial effusion. Other Information Study Quality: Good Conclusion Normal biventricular systolic function. No significant valvular disease. Compared to prior study, there is no significant change. Electronically signed by : Sheba Chin, 10/04/2022 10:46:24
== END ==
PROVIDERS: PCP Family Medicine; Visit Provider Internal Medicine
DX: E78.5 Hyperlipidemia, unspecified (principal); G47.33 Obstructive sleep apnea (adult) (pediatric); I10 Essential (primary) hypertension; I48.0 Paroxysmal atrial fibrillation; R06.09 Other forms of dyspnea; Z51.81 Encounter for therapeutic drug level monitoring; Z79.01 Long term (current) use of anticoagulants; Z79.899 Other long term (current) drug therapy; Z82.49 Family history of ischemic heart disease and other diseases of the circulatory system
CPT/HCPCS: 78452; 93017; 93306; A9502; J2785

== ENCOUNTER → 2023-02-24 13:46 | Outpatient (CLI) | payer MEDICARE, BC, SELFPAY ==
[2023-02-24 14:35] LABS: Basophils # 0.1 K/mm3 (0-0.2); Basophils % 0.8 % (0.1-2.0); Eosinophils # 0.1 K/mm3 (0.0-0.4); Eosinophils % 1.7 % (0.1-12.0); Hematocrit 49.7 % (37.0-47.0); Hemoglobin 16.5 g/dL (12.2-16.2); Lymphocytes # 1.7 K/mm3 (0.7-4.5); Lymphocytes % 21.8 % (10-50); Mean Corpuscular HGB Conc 33.3 g/dL (31.8-35.4); Mean Corpuscular Hemoglobin 32.2 pg (27.0-31.2); Mean Corpuscular Volume 96.6 fl (81-99); Mean Platelet Volume 9.3 fl (7.4-10.4); Monocytes # 0.4 K/mm3 (0.1-1.0); Monocytes % 5.4 % (1.7-9.3); Neutrophils # 5.5 K/mm3 (1.8-7.8); Neutrophils % 70.3 % (37.0-80.0); Platelet Count 143 K/mm3 (142-424); Red Blood Count 5.14 M/mm3 (4.20-5.40); Red Cell Distribution Width 13.8 % (11.5-17.5); White Blood Count 7.8 K/mm3 (4.8-10.8)
[2023-02-24 15:08] LABS: Alanine Aminotransferase 25 U/L (12-78); Albumin Level 4.2 g/dl (3.5-5.0); Albumin/Globulin Ratio 1.6 (1.1-1.8); Alkaline Phosphatase 105 U/L (38-126); Aspartate Amino Transferase 25 U/L (14-36); Bilirubin,Total 0.4 mg/dl (0.2-1.3); Blood Urea Nitrogen 20 mg/dl (7-17); Calcium 9.1 mg/dl (8.4-10.2); Carbon Dioxide 29 mmol/L (22.0-30.0); Chloride 102 mmol/L (98-107); Estimated Glomerular Filt Rate 55 ml/min (>60); GFR (African American) 67 ML/MIN (>60); Globulin 2.6 g/dL (1.3-3.2); Glucose 101 mg/dl (74-100); Sodium 139 mmol/L (136-145); Total Protein,Serum 6.8 g/dl (6.3-8.2)
[2023-02-24 15:14] LABS: C-Reactive Protein 2.7 mg/L (0-4)
[2023-02-24 15:16] LABS: Erythrocyte Sedimentation Rate 20 mm/hr (0-30)
[2023-02-25 10:04] LABS: HBsAg Screen Negative (Negative); HCV Ab Non Reactive (Non Reactive); Hep A Ab, IGM Negative (Negative); Hep B Core Ab, IgM Negative (Negative)
[2023-02-28 20:11] LABS: QuantiFERON-TB Gold Plus Negative (Negative)
== END ==
PROVIDERS: PCP Family Medicine; Visit Provider Internal Medicine Rheumatology
DX: G51.0 Bell's palsy; I48.91 Unspecified atrial fibrillation; M06.09 Rheumatoid arthritis without rheumatoid factor, multiple sites; M85.50 Aneurysmal bone cyst, unspecified site; C57.8 Malignant neoplasm of overlapping sites of female genital organs; Z79.899 Other long term (current) drug therapy; R06.09 Other forms of dyspnea; R53.83 Other fatigue
CPT/HCPCS: 36415; 80053; 80074; 85025; 85651; 86140; 86480

== ENCOUNTER 2023-11-17 11:08 | Outpatient (CLI) | payer MEDICARE, BC, SELFPAY ==
[2023-11-17 11:52] LABS: Basophils # 0.1 K/mm3 (0-0.2); Basophils % 0.7 % (0.1-2.0); Eosinophils # 0.1 K/mm3 (0.0-0.4); Eosinophils % 0.8 % (0.1-12.0); Hematocrit 50.7 % (37.0-47.0); Lymphocytes # 1.5 K/mm3 (0.7-4.5); Lymphocytes % 14.7 % (10-50); Mean Corpuscular HGB Conc 31.6 g/dL (31.8-35.4); Mean Corpuscular Hemoglobin 31.4 pg (27.0-31.2); Mean Corpuscular Volume 99.4 fl (81-99); Mean Platelet Volume 9.1 fl (7.4-10.4); Monocytes # 0.5 K/mm3 (0.1-1.0); Monocytes % 4.8 % (1.7-9.3); Platelet Count 152 K/mm3 (142-424); Red Cell Distribution Width 14.1 % (11.5-17.5); White Blood Count 10.1 K/mm3 (4.8-10.8)
[2023-11-17 12:43] LABS: Erythrocyte Sedimentation Rate 11 mm/hr (0-30)
[2023-11-17 13:18] LABS: Alanine Aminotransferase 24 U/L (12-78); Albumin Level 3.8 g/dl (3.5-5.0); Albumin/Globulin Ratio 1.5 (1.1-1.8); Alkaline Phosphatase 76 U/L (38-126); Anion Gap 8.8 mEq/L (5-15); Aspartate Amino Transferase 24 U/L (14-36); Bilirubin,Total 0.5 mg/dl (0.2-1.3); Blood Urea Nitrogen 25 mg/dl (7-17); Calcium 9.8 mg/dl (8.4-10.2); Carbon Dioxide 32 mmol/L (22.0-30.0); Chloride 103 mmol/L (98-107); Estimated Glomerular Filt Rate 55 ml/min (>60); GFR (African American) 67 ML/MIN (>60); Globulin 2.6 g/dL (1.3-3.2); Glucose 100 mg/dl (74-100); Potassium 3.8 mmoL/L (3.5-5.1); Sodium 140 mmol/L (136-145); Total Protein,Serum 6.4 g/dl (6.3-8.2)
[2023-11-17 13:24] LABS: C-Reactive Protein 11.9 mg/L (0-4)
== END 2023-11-17 23:59 | disposition home or self-care (01) ==
LOC: LAB 11:11
PROVIDERS: PCP Family Medicine; Visit Provider Internal Medicine Rheumatology
DX: Z72.0 Tobacco use (principal); M06.9 Rheumatoid arthritis, unspecified; M85.50 Aneurysmal bone cyst, unspecified site; Z68.28 Body mass index [BMI] 28.0-28.9, adult; Z79.899 Other long term (current) drug therapy
CPT/HCPCS: 36415; 80053; 85025; 85651; 86140

== ENCOUNTER 2023-12-28 14:34 | Outpatient (CLI) | payer MEDICARE, BC, SELFPAY ==
[2024-01-01 10:35] LABS: QuantiFERON-TB Gold Plus Negative (Negative)
== END 2023-12-28 23:59 | disposition home or self-care (01) ==
LOC: LAB 14:37
PROVIDERS: PCP Family Medicine; Visit Provider Internal Medicine Rheumatology
DX: R53.83 Other fatigue (principal)
CPT/HCPCS: 36415; 86480

== ENCOUNTER 2024-04-26 11:53 | Outpatient (CLI) | payer MEDICARE, BC, SELFPAY ==
[2024-04-26 12:17] LABS: Basophils # 0.1 K/mm3 (0-0.2); Basophils % 1.2 % (0.1-2.0); Eosinophils # 0.1 K/mm3 (0.0-0.4); Hematocrit 45.6 % (37.0-47.0); Lymphocytes % 28.9 % (10-50); Mean Corpuscular HGB Conc 32.9 g/dL (31.8-35.4); Mean Corpuscular Hemoglobin 30.8 pg (27.0-31.2); Mean Corpuscular Volume 93.6 fl (81-99); Mean Platelet Volume 10.4 fl (7.4-10.4); Monocytes # 0.5 K/mm3 (0.1-1.0); Monocytes % 7.4 % (1.7-9.3); Neutrophils # 4.2 K/mm3 (1.8-7.8); Neutrophils % 60.2 % (37.0-80.0); Platelet Count 160 K/mm3 (142-424); Red Blood Count 4.87 M/mm3 (4.20-5.40); Red Cell Distribution Width 13.4 % (11.5-17.5); White Blood Count 6.9 K/mm3 (4.8-10.8)
[2024-04-26 12:44] LABS: Erythrocyte Sedimentation Rate 12 mm/hr (0-30)
[2024-04-26 12:53] LABS: Alanine Aminotransferase 36 U/L (12-78); Albumin Level 4.4 g/dl (3.5-5.0); Albumin/Globulin Ratio 2.2 (1.1-1.8); Alkaline Phosphatase 82 U/L (38-126); Anion Gap 14.2 mEq/L (5-15); Aspartate Amino Transferase 29 U/L (14-36); Bilirubin,Total 0.5 mg/dl (0.2-1.3); Blood Urea Nitrogen 25 mg/dl (7-17); Calcium 9.7 mg/dl (8.4-10.2); Carbon Dioxide 31 mmol/L (22.0-30.0); Chloride 100 mmol/L (98-107); Estimated Glomerular Filt Rate 55 ml/min (>60); GFR (African American) 67 ML/MIN (>60); Glucose 78 mg/dl (74-100); Potassium 4.2 mmoL/L (3.5-5.1); Sodium 141 mmol/L (136-145); Total Protein,Serum 6.4 g/dl (6.3-8.2)
[2024-04-26 12:58] LABS: C-Reactive Protein 0.5 mg/L (0-4)
== END 2024-04-26 23:59 | disposition home or self-care (01) ==
LOC: LAB 11:54
PROVIDERS: PCP Family Medicine; Visit Provider Nurse Practitioner Family
DX: M06.9 Rheumatoid arthritis, unspecified (principal); M85.80 Other specified disorders of bone density and structure, unspecified site; Z79.899 Other long term (current) drug therapy; R53.83 Other fatigue
CPT/HCPCS: 36415; 80053; 85025; 85651; 86140

== ENCOUNTER 2024-06-24 10:16 | Outpatient (CLI) | payer MEDICARE, BC, SELFPAY ==
[2024-06-24 10:50] LABS: Basophils % 0.5 % (0.1-2.0); Eosinophils # 0.2 K/mm3 (0.0-0.4); Eosinophils % 2.4 % (0.1-12.0); Hematocrit 45.8 % (37.0-47.0); Hemoglobin 14.8 g/dL (12.2-16.2); Lymphocytes # 1.1 K/mm3 (0.7-4.5); Lymphocytes % 17.7 % (10-50); Mean Corpuscular HGB Conc 32.3 g/dL (31.8-35.4); Mean Corpuscular Hemoglobin 30.6 pg (27.0-31.2); Mean Corpuscular Volume 94.8 fl (81-99); Mean Platelet Volume 10.3 fl (7.4-10.4); Monocytes # 0.5 K/mm3 (0.1-1.0); Monocytes % 8.7 % (1.7-9.3); Neutrophils # 4.4 K/mm3 (1.8-7.8); Neutrophils % 70.4 % (37.0-80.0); Nucleated Red Blood Cells # 0 10^3/uL; Nucleated Red Blood Cells % 0 %; Platelet Count 148 K/mm3 (142-424); Red Blood Count 4.83 M/mm3 (4.20-5.40); Red Cell Distribution Width 13.2 % (11.5-17.5); Red Cell Distribution Width-SD 46.1 fL; White Blood Count 6.2 K/mm3 (4.8-10.8)
[2024-06-24 11:14] LABS: Albumin Level 4.1 g/dl (3.5-5.0); Chloride 103 mmol/L (98-107)
[2024-06-24 11:15] LABS: Potassium 3.8 mmoL/L (3.5-5.1); Sodium 142 mmol/L (136-145)
[2024-06-24 11:17] LABS: Alanine Aminotransferase 26 U/L (12-78); Albumin/Globulin Ratio 1.5 (1.1-1.8); Alkaline Phosphatase 98 U/L (38-126); Anion Gap 10.8 mEq/L (5-15); Aspartate Amino Transferase 26 U/L (14-36); Bilirubin,Total 0.5 mg/dl (0.2-1.3); Blood Urea Nitrogen 25 mg/dl (7-17); Carbon Dioxide 32 mmol/L (22.0-30.0); Estimated Glomerular Filt Rate 55 ml/min (>60); GFR (African American) 67 ML/MIN (>60); Globulin 2.8 g/dL (1.3-3.2); Total Protein,Serum 6.9 g/dl (6.3-8.2)
[2024-06-24 11:18] LABS: Calcium 9.4 mg/dl (8.4-10.2); Glucose 95 mg/dl (74-100)
[2024-06-24 11:24] LABS: C-Reactive Protein 6.3 mg/L (0-4)
[2024-06-24 11:30] LABS: Erythrocyte Sedimentation Rate 62 mm/hr (0-30)
== END 2024-06-24 23:59 | disposition home or self-care (01) ==
LOC: LAB 10:18
PROVIDERS: PCP Family Medicine; Visit Provider Internal Medicine Rheumatology
DX: M06.9 Rheumatoid arthritis, unspecified (principal); Z79.899 Other long term (current) drug therapy
CPT/HCPCS: 36415; 80053; 85025; 85651; 86140

== ENCOUNTER 2024-06-27 10:23 | Outpatient (CLI) | payer MEDICARE, BC, SELFPAY ==
[2024-06-27 10:59] LABS: Basophils # 0.1 K/mm3 (0-0.2); Basophils % 0.9 % (0.1-2.0); Eosinophils # 0.2 K/mm3 (0.0-0.4); Eosinophils % 2.8 % (0.1-12.0); Hematocrit 47.2 % (37.0-47.0); Hemoglobin 15.4 g/dL (12.2-16.2); Lymphocytes # 1.6 K/mm3 (0.7-4.5); Mean Corpuscular HGB Conc 32.6 g/dL (31.8-35.4); Mean Corpuscular Hemoglobin 30.9 pg (27.0-31.2); Mean Corpuscular Volume 94.8 fl (81-99); Mean Platelet Volume 10.5 fl (7.4-10.4); Monocytes # 0.6 K/mm3 (0.1-1.0); Monocytes % 8.9 % (1.7-9.3); Neutrophils # 4.1 K/mm3 (1.8-7.8); Neutrophils % 63.1 % (37.0-80.0); Nucleated Red Blood Cells # 0 10^3/uL; Nucleated Red Blood Cells % 0 %; Platelet Count 173 K/mm3 (142-424); Red Blood Count 4.98 M/mm3 (4.20-5.40); Red Cell Distribution Width 13.2 % (11.5-17.5); White Blood Count 6.5 K/mm3 (4.8-10.8)
[2024-06-27 11:37] LABS: Alanine Aminotransferase 30 U/L (12-78); Albumin Level 4.3 g/dl (3.5-5.0); Albumin/Globulin Ratio 1.5 (1.1-1.8); Alkaline Phosphatase 108 U/L (38-126); Anion Gap 14.4 mEq/L (5-15); Aspartate Amino Transferase 25 U/L (14-36); Bilirubin,Total 0.7 mg/dl (0.2-1.3); Blood Urea Nitrogen 23 mg/dl (7-17); Calcium 9.8 mg/dl (8.4-10.2); Carbon Dioxide 31 mmol/L (22.0-30.0); Chloride 101 mmol/L (98-107); Estimated Glomerular Filt Rate 55 ml/min (>60); GFR (African American) 67 ML/MIN (>60); Globulin 2.9 g/dL (1.3-3.2); Glucose 87 mg/dl (74-100); Potassium 4.4 mmoL/L (3.5-5.1); Sodium 142 mmol/L (136-145); Total Protein,Serum 7.2 g/dl (6.3-8.2)
[2024-06-27 11:42] LABS: C-Reactive Protein 3.5 mg/L (0-4)
[2024-06-27 12:29] LABS: Erythrocyte Sedimentation Rate 15 mm/hr (0-30)
== END 2024-06-27 23:59 | disposition home or self-care (01) ==
LOC: LAB 10:24
PROVIDERS: PCP Family Medicine; Visit Provider Nurse Practitioner Family
DX: M05.9 Rheumatoid arthritis with rheumatoid factor, unspecified (principal); Z79.899 Other long term (current) drug therapy
CPT/HCPCS: 36415; 80053; 85025; 85651; 86140

== ENCOUNTER 2024-07-04 08:57 | Outpatient (CLI) | payer MEDICARE, BC, SELFPAY ==
--- NOTE | 2024-07-04 09:11 | XR_ITS ---
FINAL REPORT TECHNIQUE: Bone densitometry calculations of the lumbar spine and bilateral hips were obtained. CLINICAL HISTORY: POST MENOPAUSAL COMPARISON: None FINDINGS: Using L1-4, the bone mineral density of the spine is 0.883 g/cm2, corresponding to T-score of -1.5 and a Z score of 0.5. This is within the range of osteopenia. Using the left hip, the bone mineral density of the femoral neck is 0.851 g/cm2, corresponding to a T-score of -0.7 and a Z-score of 0.7. This is within the range of normal. Using the right hip, the bone mineral density of the femoral neck is 0.722 g/cm?, corresponding to a T-score of -1.1 and a Z-score of 0.5. This is within the range of osteopenia. NOTE: T-score: Standard deviation compared with peak bone mass of young adult mean. *Following the recommendations of the International Society of Bone densitometry, classification of hip BMD is based on the lower of two T-scores; total hip or femoral neck. IMPRESSION: 1. Bone mineral density of the lumbar spine within the range of osteopenia. 2. Bone mineral density of the left femoral neck within the range of normal. 3. Bone mineral density of the right femoral neck within the range of osteopenia. Reviewed, Interpreted and Dictated by Stephanie Posadas MD Transcribed by Pebbles Ang Authenticated and [facility]
== END 2024-07-04 23:59 | disposition home or self-care (01) ==
LOC: RAD 08:58
PROVIDERS: PCP Family Medicine; Visit Provider Nurse Practitioner Family
DX: M85.88 Other specified disorders of bone density and structure, other site (principal)
CPT/HCPCS: 77080

== ENCOUNTER 2024-10-16 09:24 | Outpatient (CLI) | payer MEDICARE, BC, SELFPAY ==
--- OUTSIDE RECORDS SUMMARY | 2016-07-05 14:17 | XMS_ITS | Encounter Summary ---
Author Organization [facility] Address [address] [place] [address] Care Team Providers Care Planer Hand Name Role Phone Jay Conrad MD Primary Care Provider Encounter Details Date Type Department Care Team (Late Contact Info) Description 07/05/2016 2:17 PM EDT Hospital Encounter [facility] [address] [place] [phone] Social History Tobacco Use Types Packs/Day Years Used Date Smoking Tobacco: Former Cigarettes 0.5 42 0 04/1975 - 04/2017 Smokeless Tobacco: Never Comments:patient has quit 2017 Alcohol Use Standard Drinks/Week Comments Yes 1 (1 standard drink = 0.6 oz pur e alcohol) rarely PHQ-2 Answer Date Recorded Retired PHQ-9: Brief Depression Severity Measure Score 0 01/27/2022 Comments No Sex and Gender Information Value Date Recorded Sex Assigned at Not on file Legal Sex Female 1:01 PM EDT Gender Identity Not on file Sexual Orientation Not on file documented as of this encounter Plan of Treatment Upcoming Encounters Date Type Department Care Team (Late Contact Info) Description 12/26/2024 11:30 AM EDT Office Visit [facility] [address] [phone] Huber Miles MD [address] [id number] documented as of this encounter Procedures Procedure Name Priority Date/Time Associated Diagnosis Comments XR CHEST PA AND LATERAL Routine 07/05/2016 2:24 P M EDT Lung nodule documented in this encounter Results * XR Chest PA & Lateral (07/05/2016 2:24 PM EDT) us Greg Ho MD IMG DIAGNOSTIC IMAGING ORDERABL ES Final Result documented in this encounter Visit Diagnoses Not on filedocumented in this encounter Care Teams Planer Hand Relationship Specialty Start Date End Date Jay Conrad MD [address] [facility] [address] [place] [address] PCP - General 05/26/15 documented as of this encounter
--- OUTSIDE RECORDS SUMMARY | 2024-01-04 09:30 | XMS_ITS ---
Author Organization [facility] Address [address] [place] [id number] Care Team Providers Care Signal Supervisor Name Role Phone Harinder Conrad Primary Care Provider ANMOL ROJAS Unavailable Unavailable Amilcar Tristan Unavailable [phone] Allergies Allergen (clinical drug ingredient) Drug/Non Drug Allergy documented on EMR Reaction Allergy Type Onset Date Status doxycycline Doxycycline nausea Drug Allergy Act delmar codeine Codeine lightheaded, nausea Drug Allergy Active Results Component Value Reference Range Notes CA -125 Reviewed date:01/11/2024 10:22:16 AM Interpretation: Performing Lab: Notes/Report: P-Basic Metabolic Panel (BMP ) Reviewed date:01/09/2024 05:18:47 PM Interpretation:bun 27 Performing Lab: Notes/Report: Test performed by [place], [place] [facility] [facility] , [address], [place] [address] Mark Gonzalez MD, Anode Worker CLIA: [id number] Sodium 143 135-145 mmol/L Potassium 4.2 3.5-5.3 mmol/L Chloride 101 97-108 mmol/L CO2 29 22-32 mmol/L Glucose 95 65-99 mg/dL BUN 27 8-23 mg/dL Creatinine 0.96 0.50-1.00 mg/dL Calcium 10.2 8.6-10.4 mg/dL eGFR by Creatinine 65 >59 mL/min/1.73m2 REASON FOR VISIT 3 month f/u, Needs labs, low dose chest CT, colon cancer screening, & flu vaccine Medications Medication SIG (Take, Route, Frequency, Duration) Notes Start Date End Date Status Aspirin 81 MG orally once daily Active Enbrel SureClick 50 MG/ML 50 mg subcutaneously once a week Active Plaquenil 200 MG 1 tab(s) orally twic e a day Active Flecainide Acetate 150 MG 1 tab(s) orally bid; Duration: 90 days Active CareTouch CPAP & BIPAP Hose 1 DIRECTED G47.30G47.33 02/01/2021 Active Isosorbide Mononitrate ER 30 MG TAKE 1 TABLET BY MOUTH ONCE DAILY IN THE MORNING FOR 90 DAYS; Duration: 90 Active Atorvastatin Calcium 10 MG Take 1 tablet by mouth once daily; Duration: 90 days Active Lisinopril-hydroCHLO ROthiazide 20-12.5 MG Take 1 tablet by mouth twice daily; Duration: 90 Active Albuterol Sulfate HFA 108 (90 Base) MCG/ACT 2 puff(s) inhaled every 6 hours; Duration: 30 day(s) Not-Taking Pantoprazole Sodium 40 MG Take 1 tablet by mouth once daily; Duration: 90 Active Eliquis 5 MG Take 1 tablet by sapphire th twice daily; Duration: 90 Active CPAP SUPPLIES DIRECTED 06/28/2021 Act delmar Immunizations Vaccine Route Administration Date Status Comme nts Fluzone High Dose (65yr and older) IM Intramuscular 01/04/2024 Administered Social History Tobacco Use: Social History Observation Description Date Details (start date - stop date) Current Smoker NA - NA CURRENT TOBACCO USE: Question Answer Notes Are you a: current smoker STOPPED MAY 242021 How many cigarettes a day do you smoke? 5 or les s Vital Signs Blood pressure systolic 130 mm Hg 01/04/20 24 Blood pressure diastolic 74 mm Hg 024 Heart Rate 72 /min 01/04/2024 Height 66 in 01/04/2024 Weight 171.8 lbs 01/04/2024 BMI 27.73 kg/m2 01/04/2024 Encounters Encounter Location Date Provider Diagnosis [facility] [address] [place] [address], [place] [id number] 01/04/2024 Amilcar Tristan Hx of ovarian cancer Z85.43 ; Osteopenia, unspecified location M85.80 ; Tobacco use Z72.0 ; Centrilobular emphysema J43.2 ; History of atrial fibrillation Z86.79 ; Sleep apnea in adult G47.30 and Encounter for immunization Z23 Assessments Encounter Date Diagnosis (ICD Code) Assessment Notes Treatment Notes Treatment Clinical Notes Section Notes 01/04/2024 Hx of ovarian cancer (ICD-10 - Z85.43) 01/04/2024 Osteopenia, unspecified location (ICD-10 - M85.80) 01/04/2024 Tobacco use (ICD-10 - Z72.0) 01/04/2024 Centrilobular emphysema (ICD-10 - J43.2) 01/04/2024 History of atrial fibrillation (ICD-10 - Z86.79) 01/04/2024 Sleep apnea in adult (ICD-10 - G47.30) 01/04/2024 Encounter for immunization (ICD-10 - Z23) Plan Of Treatment Next Appt Details Follow Up: 6 Months, Reason: Provider Name:Amilcar Jean er, 12/05/2024 01:30:00 PM, [address] [facility] [address] [facility], [address], [place], [place], [id number], Progress Notes * Rohit ROSEOB:1955 ( 69 yo F)Acc No.[id number]:01/04/2024 Progress Notes Patient: Charity NO Provider: Amilcar Tristan M.D. :1955 A ge:68 Y S ex:Female Date:01/04/2024 Address:[address] [place] [address], [facility] Pcp:Harinder Conrad Subjective: * Chief Complaints: * 1 . 3 month f/u. 2. Needs labs, low dose chest CT, colon cancer screening, & flu vaccine. * HPI: C ardiology: The patient is here for a check up on Hypertension and Hyperlipidemia. Pt states she doing good and denies any new concerns. Pt states she is not fasting. Pt states she would like to discuss her C pap. Pt states she is using any time she is using the C pap at night and even in the day time if she takes a nap. I love it. . Denies : Chest Pain. D enies : Short of Breath. D enies : Dizziness. D enies : Palpitations. G astroenterology: She states she is to have yearly CA-125 blood study. This was not done on the July 2023 blood work. * ROS: D ERMATOLOGY: no R glenda. n o H rocio. G ASTROENTEROLOGY: no N ausea. n o V omiting. n o D iarrhea.? U ROLOGY: no D ifficulty urinating. n o B lood in urine. 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 Efraín Wong, see records. 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 * Hospitalization/Major Diagno stic Procedure: h igh heart rate 10-23-18. * Family History: F ather: alive 76 yrs, Hernia, hypertension. M other: 64 yrs, breast cancer, colon cancer. P aternal Grand Mother: breast cancer. 2 brother(s) , 2 sister(s) . 1 son(s) . .? * Social History: C URRENT TOBACCO USE: Yes A re you a: c urrent smoker STOPPED May, H ow many cigarettes a day do you smoke? 5 or less. C affeine: yes, frequency:. Alcohol: no. * Medications: T aking Plaquenil 200 MG Tablet 1 tab(s) orally twice a day , Taking Enbrel SureClick 50 MG/ML Solution Auto-injector 50 mg subcutaneously once a week , Taking Aspirin 81 MG Tablet Delayed Release orally once daily , Taking CareTouch CPAP & BIPAP Hose MACHINE AND SUPPLIES 1 DIRECTED , Notes to Pharmacist: G47.30G47.33, Taking Flecainide Acetate 150 MG Tablet 1 tab(s) orally bid , Taking CPAP SUPPLIES DIRECTED , Taking Eliquis 5 MG Tablet Take 1 tablet by mouth twice daily , Taking Atorvastatin Calcium 10 MG Tablet Take 1 tablet by mouth once daily , Taking Isosorbide Mononitrate ER 30 MG Tablet Extended Release 24 Hour TAKE 1 TABLET BY MOUTH ONCE DAILY IN THE MORNING FOR 90 DAYS , Taking Lisinopril- hydroCHLOROthiazide 20-12.5 MG Tablet Take 1 tablet by mouth twice daily , Taking Pantoprazole Sodium 40 MG Tablet Delayed Release Take 1 tablet by mouth once daily , Not-Taking Albuterol Sulfate HFA 108 (90 Base) MCG/ACT Aerosol Solution 2 puff(s) inhaled every 6 hours , Medication List reviewed and reconciled with the patient * Allergies: C odeine: lightheaded, nausea, Doxycycline: nausea - Side Effects. Objective: * Vitals: W t:171.8, Temp:98.4, BP:130/74, HR:72, Nurse:LYNETTE, Ht: 66, BMI:27.73. * Examination: G eneral Examination: General Appearance: N AD. H EENT: u nremarkable.?Oral cavity: n o lesions, mucosa moist and WNL, no erythema. N sharla: s upple, no lymphadenopathy. C hest: n ormal shape and expansion. H eart: R SR. L ungs: g ood air entry bilaterally, no wheezes or rales. A bdomen: soft and nontender, no organomegaly or masses. N eurologic Exam: I ntact, gait normal. S kin: n ormal, no rash. P eripheral pulses: n ormal . E xtremities: n o leg edema. Assessment: * Assessment: 1. H x of ovarian cancer - Z85.43 (Primary) 2 . O steopenia, unspecified location - M85.80 3 . T obacco use - Z72.0 4 . C entrilobular emphysema - J43.2 5 . H istory of atrial fibrillation - Z86.79 6 . S leep apnea in adult - G47.30 7 . E ncounter for immunization - Z23 Plan: * Treatment: Value Reference Range B UN 27 H 8-23 - mg/dL * C alcium 10.2 8.6-10.4 - mg/dL * C hloride 101 97-108 - mmol/L * C O2 29 22-32 - mmol/L * C reatinine 0.96 0.50-1.00 - mg/dL * G lucose 95 65-99 - mg/dL * P otassium 4.2 3.5-5.3 - mmol/L * S odium 143 135-145 - mmol/L * e GFR by Creatinine 65 >59 - mL/min/1.73m2 * Arlen Bonds 01/09/2024 5:1 8:31 PM >See phone encounter ?LAB: CA -125 (Collection Date & Time - 01/11/2024)* see duplicate order * Immunizations: Fluzone High Dose (65yr and older) : 0.7 mL (Route: Intramuscular) given by Arlen Bonds on Right Deltoid (Encounter for immunization) * Follow Up: 6 Months * Images: Billing Information: * Visit Code: 66884 Office Visit, Est Pt., Level 4. * Procedure Codes: * Electronic signature of Amilcar Tristan MD on 10/16/2024 at 09:29 AM EDT Sign off status: Pending * Provider: Amilcar Tristan M.D. Date: 1 Generated for Printi ng/Faalvarezg/eTransmitting on: 0 10/16/2024 09:29 AM EDT History and Physical Notes * HPI (History of Present Illness) Category Sub-Category Detail Notes Category Not es Cardiology Short of Breath Chest Pain Palpitations Dizziness Examination Category Sub-Category Detail Notes Category Not es General Examination HEENT: unremarkable Heart: RSR Lungs: good air entry bilat erally, no wheezes or rales Abdomen: soft and nontender, no organomegaly or masses Extremities: no leg edema General Appearance: NAD Skin: normal, no rash Neurologic Exam: Intact, gait normal Neck: supple, no lymphaden opathy Oral cavity: no lesions, mucosa m oist and WNL, no erythema Peripheral pulses: normal Chest: normal shape and exp ansion
--- OUTSIDE RECORDS SUMMARY | 2024-05-17 06:50 | XMS_ITS ---
Author Organization [facility] Address [address] [place] [id number] Care Team Providers Care Weave Defect Charting Clerk Name Role Phone Harinder Conrad Primary Care Provider [phone] ANMOL ROJAS Unavailable Unavailable [place] Alarcon Unavailable [phone] Allergies Allergen (clinical drug ingredient) Drug/Non Drug Allergy documented on EMR Reaction Allergy Type Onset Date Status doxycycline Doxycycline nausea Drug Allergy Act delmar codeine Codeine lightheaded, nausea Drug Allergy Active Results Component Value Reference Range Notes Influenza Screen (in house) Reviewed date:05/17/2024 11:04:43 AM Interpretation: Performing Lab: Notes/Report: results Pos A REASON FOR VISIT headache, body aches Medications Medication SIG (Take, Route, Frequency, Duration) Notes Start Date End Date Status Lisinopril-hydroCHLORO thiazide 20-12.5 MG Take 1 tablet by mouth twice daily; Duration: 90 Active Pantoprazole Sodium 40 MG Take 1 tablet by mouth once daily; Duration: 90 Active Tamiflu 75 MG 1 capsule Orally Twi ce a day; Duration: 5 day(s) 05/17/2024 Active Atorvastatin Calcium 10 MG Take 1 tablet by mouth once daily; Duration: 90 Active Flecainide Acetate 150 MG 1 tab(s) orally bid; Duration: 90 days Active CareTouch CPAP & BIPAP Hose 1 DIRECTED G47.30G47.33 02/01/2021 Active Aspirin 81 MG orally once daily Active Enbrel SureClick 50 MG/ML 50 mg subcutaneously once a week Active CPAP SUPPLIES DIRECTED 06/28/2021 Act delmar Plaquenil 200 MG 1 tab(s) orally twic e a day Active Eliquis 5 MG Take 1 tablet by twice daily; Duration: 90 Active Isosorbide Mononitrate ER 30 MG TAKE 1 TABLET BY MOUTH ONCE DAILY IN THE MORNING; Duration: 90 Active Social History Tobacco Use: Social History Observation Description Date Details (start date - stop date) Current Smoker NA - NA CURRENT TOBACCO USE: Question Answer Notes Are you a: current smoker STOPPED MAY 242021 How many cigarettes a day do you smoke? 5 or les s Vital Signs Blood pressure systolic 130 mm Hg 05/18/19 25 Blood pressure diastolic 78 mm Hg 025 Heart Rate 77 /min 05/17/2024 Height 66 in 05/17/2024 Weight 174.2 lbs 05/17/2024 BMI 28.11 kg/m2 05/17/2024 Encounters Encounter Location Date Provider Diagnosis [facility] [address] [facility] [address] [facility] [address] [place] [id number] 05/17/2024 [place] Alarcon Influenza A J 10.1 Assessments Encounter Date Diagnosis (ICD Code) Assessment Notes Treatment Notes Treatment Clinical Notes Section Notes 05/17/2024 Influenza A (ICD-10 - J10.1) Plan Of Treatment Medication Medication Name Sig Start Date Stop Date Notes Tamiflu 75 MG 1 capsule Orally Twi ce a day; Duration: 5 day(s) 05/17/2024 Next Appt Details Follow Up: prn, Reason: Provider Name:Amilcar Jean er, 12/05/2024 01:30:00 PM, [address] [facility] [address] [facility], [address], [place], [id number], Progress Notes * Rohit ROSEOB:1955 ( 69 yo F)Acc No.[id number]:05/17/2024 Progress Notes Patient: Charity NO Provider: Hernando Alarcon M.D. :1955 A ge:68 Y S ex:Female Date:05/17/2024 Address:[address] [place] [address], [place] [id number] Pcp:Harinder Conrad Subjective: * Chief Complaints: * 1 . Headache, body aches. * HPI: E NT/respiratory: 68 year old female presents with c/o cough P t complains of dry without any sputum production cough that started yesterday. Associated with fever, bodyaches and congestion. * ROS: D ERMATOLOGY: no R glenda. n o H rocio. G ASTROENTEROLOGY: no N ausea. n o V omiting. U ROLOGY: no D ifficulty urinating. n o B lood in urine. 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 Efraín Wong, see records. 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 05/15/2017, appendectomy 05/15/2017. * Hospitalization/Major Diagno stic Procedure: h igh heart rate 01/02/2018. * Family History: F ather: alive 77 [...] frequency:. Alcohol: no. * Medications: T aking Isosorbide Mononitrate ER 30 MG Tablet Extended Release 24 Hour TAKE 1 TABLET BY MOUTH ONCE DAILY IN THE MORNING , Taking Eliquis 5 MG Tablet Take 1 tablet by mouth twice daily , Taking Plaquenil 200 MG Tablet 1 tab(s) orally [...] , Taking CPAP SUPPLIES DIRECTED , Taking Atorvastatin Calcium 10 MG Tablet Take 1 tablet by mouth once daily , Taking Pantoprazole Sodium 40 MG Tablet Delayed Release Take 1 tablet by mouth once daily , Taking Lisinopril-hydroCHLOROthiazide 20-12.5 MG Tablet Take 1 tablet by mouth twice daily , Discontinued Albuterol Sulfate HFA 108 (90 Base) MCG/ACT Aerosol Solution 2 puff(s) inhaled every 6 hours , Medication List reviewed and reconciled with the patient * Allergies: C odeine: lightheaded, nausea, Doxycycline: nausea - Side Effects. Objective: * Vitals: W t:174.2, Temp:100.1, BP:130/78, HR:77, O2 Sat:93% on RA, Nurse:sandhya, Ht: 66, BMI:28.11. * Examination: E NT/Respiratory: General Appearance: N AD. E yes: P ERRLA, sclera clear. H eart : RRR. L ungs: c lear to auscultation bilaterally. ? Assessment: * Assessment: 1. I nfluenza A - J10.1 (Primary) Plan: * Treatment: Value Reference Range r esults Pos A * Ana Laura Cooper 05/17/2024 10:43:33 AM > , Provider reviewed results while patient in office. * Procedure Codes: G 2211 Complex e/[place] [address] [place], [address] Flu Test- Nasal Swab, Modifiers: QW , 3075F SYST BP GE 130 - 139MM HG, 3078F DIAST BP < 80 MM HG * Follow Up: p rn * Images: Billing Information: * Visit Code: 49963 Office Visit, Est Pt., Level 3. * Procedure Codes: G2211 Complex e/[place] [address] [place] [address] Flu Test- Nasal Swab. Modifiers: QW 3075F SYST BP GE 130 - 139MM HG. 3078F DIAST BP < 80 MM HG. * Electronic signature of Iris Alarcon MD on 10/16/2024 at 09:29 AM EDT Sign off status: Pending * Provider: Hernando Alarcon M.D. Date: 0 05/17/2024 Generated for Hammad mckenna/Irais/eTransmitting on: 0 10/16/2024 09:29 AM EDT History and Physical Notes * HPI (History of Present Illness) Category Sub-Category Detail Notes Category Not es ENT/respiratory cough Pt complains of dry without any sputum production cough that started yesterday. Associated with fever, bodyaches and congestion Examination Category Sub-Category Detail Notes Category Not es ENT/Respiratory Heart : RRR Lungs: clear to auscultatio n bilaterally General Appearance: NAD Eyes: PERRLA, sclera clear
--- OUTSIDE RECORDS SUMMARY | 2024-10-16 09:29 | XMS_ITS ---
Author Organization Unknown Medications Date Medication Dosage DosageUnit StartDate StopDate StopReason Active DoseQuantity DoseUnit Dispense DispenseUnit Refills NdcCode DrugCode PharmacyId IsPrescription MappedMedication Srcstatus Custom 05/17 00:00 :00 Albuterol Sulfate HFA 108 (90 Base) MCG/ACT Aerosol Solution 0 [id number] 287 Discontinu ed 01/03 00:00 :00 Albuterol Sulfate HFA 108 (90 Base) MCG/ACT Aerosol Solution 0 [id number] 287 Not Taking 07/04 00:00 :00 Aspirin 81 MG Tablet Delayed Release 1 [id number] 474 Taking 05/17 00:00 :00 Aspirin 81 MG Tablet Delayed Release 1 [id number] 474 Taking 01/03 00:00 :00 Aspirin 81 MG Tablet Delayed Release 1 [id number] 474 Taking 09/25 00:00 :00 Atorvastati n Calcium 10 MG Tablet 1 90 Tablet 0 [id number] 698 Start 09/25 00:00 :00 Atorvastati n Calcium 10 MG Tablet 0 90 Tablet 1 [id number] 698 Stop 07/04 00:00 :00 Atorvastati n Calcium 10 MG Tablet 1 90 Tablet 1 [id number] 698 Taking 05/17 00:00 :00 Atorvastati n Calcium 10 MG Tablet 1 90 Tablet 1 [id number] 698 Taking 02/22 00:00 :00 Atorvastati n Calcium 10 MG Tablet 1 90 Tablet 1 [id number] 698 Start 02/22 00:00 :00 Atorvastati n Calcium 10 MG Tablet 0 90 Tablet 1 [id number] 698 Stop 01/03 00:00 :00 Atorvastati n Calcium 10 MG Tablet 1 90 Tablet 1 [id number] 698 Taking 07/04 00:00 :00 Calcium 500 MG Tablet 07/04/2024 00:00:00 1 60 [id number] 0 001 P Start 07/04 00:00 :00 CareTouch CPAP & BIPAP Hose MACHINE AND SUPPLIES 02/01/2021 00:00:00 1 1 P Taking 05/17 00:00 :00 CareTouch CPAP & BIPAP Hose MACHINE AND SUPPLIES 02/01/2021 00:00:00 1 1 P Taking 01/03 00:00 :00 CareTouch CPAP & BIPAP Hose MACHINE AND SUPPLIES 02/01/2021 00:00:00 1 1 P Taking 07/04 00:00 :00 CPAP SUPPLIES 06/28/2021 00:00:00 1 1 P Taking 05/17 00:00 :00 CPAP SUPPLIES 06/28/2021 00:00:00 1 1 P Taking 01/03 00:00 :00 CPAP SUPPLIES 06/28/2021 00:00:00 1 1 P Taking 07/29 00:00 :00 Eliquis 5 MG Tablet 1 180 Tablet 0 [id number] 421 Start 07/29 00:00 :00 Eliquis 5 MG Tablet 0 180 Tablet 1 [id number] 421 Stop 07/04 00:00 :00 Eliquis 5 MG Tablet 1 180 Tablet 1 [id number] 421 Taking 05/17 00:00 :00 Eliquis 5 MG Tablet 1 180 Tablet 1 [id number] 421 Taking 01/25 00:00 :00 Eliquis 5 MG Tablet 1 180 Tablet 1 [id number] 421 Start 01/25 00:00 :00 Eliquis 5 MG Tablet 0 180 Tablet 1 [id number] 421 Stop 01/03 00:00 :00 Eliquis 5 MG Tablet 1 180 Tablet 1 [id number] 421 Taking 07/04 00:00 :00 Enbrel SureClick 50 MG/ML Solution Auto-inject or 1 [id number] 000 Taking 05/17 00:00 :00 Enbrel SureClick 50 MG/ML Solution Auto-inject or 1 [id number] 000 Taking 01/03 00:00 :00 Enbrel SureClick 50 MG/ML Solution Auto-inject or 1 [id number] 000 Taking 07/04 00:00 :00 Flecainide Acetate 150 MG Tablet 1 180 Tablet 1 [id number] 221 P Taking 05/17 00:00 :00 Flecainide Acetate 150 MG Tablet 1 180 Tablet 1 [id number] 221 P Taking 01/03 00:00 :00 Flecainide Acetate 150 MG Tablet 1 180 Tablet 1 [id number] 221 P Taking 07/05 00:00 :00 Isosorbide Mononitrate ER 30 MG Tablet Extended Release 24 Hour 1 90 Tablet 1 [id number] 0 401 Start 07/05 00:00 :00 Isosorbide Mononitrate ER 30 MG Tablet Extended Release 24 Hour 0 90 Tablet 1 [id number] 0 401 Stop 07/04 00:00 :00 Isosorbide Mononitrate ER 30 MG Tablet Extended Release 24 Hour 1 90 Tablet 1 [id number] 0 401 Taking 05/17 00:00 :00 Isosorbide Mononitrate ER 30 MG Tablet Extended Release 24 Hour 1 90 Tablet 1 [id number] 0 401 Taking 01/11 00:00 :00 Isosorbide Mononitrate ER 30 MG Tablet Extended Release 24 Hour 1 90 Tablet 1 [id number] 0 401 Start 01/11 00:00 :00 Isosorbide Mononitrate ER 30 MG Tablet Extended Release 24 Hour 0 90 Tablet 0 [id number] 0 401 Stop 01/03 00:00 :00 Isosorbide Mononitrate ER 30 MG Tablet Extended Release 24 Hour 1 90 Tablet 0 [id number] 0 401 Taking 10/15 00:00 :00 Isosorbide Mononitrate ER 30 MG Tablet Extended Release 24 Hour 1 90 Tablet 0 [id number] 0 401 Start 10/15 00:00 :00 Isosorbide Mononitrate ER 30 MG Tablet Extended Release 24 Hour 0 90 Tablet 0 [id number] 0 401 Stop 08/22 00:00 :00 Lisinopril- hydroCHLORO thiazide 20-12.5 MG Tablet 1 180 Tablet 1 [id number] 754 Start 08/22 00:00 :00 Lisinopril- hydroCHLORO thiazide 20-12.5 MG Tablet 0 180 Tablet 1 [id number] 754 Stop 07/04 00:00 :00 Lisinopril- hydroCHLORO thiazide 20-12.5 MG Tablet 1 180 Tablet 1 [id number] 754 Taking 05/17 00:00 :00 Lisinopril- hydroCHLORO thiazide 20-12.5 MG Tablet 1 180 Tablet 1 [id number] 754 Taking 02/22 00:00 :00 Lisinopril- hydroCHLORO thiazide 20-12.5 MG Tablet 1 180 Tablet 1 [id number] 754 Start 02/22 00:00 :00 Lisinopril- hydroCHLORO thiazide 20-12.5 MG Tablet 0 180 Tablet 0 [id number] 754 Stop 01/03 00:00 :00 Lisinopril- hydroCHLORO thiazide 20-12.5 MG Tablet 1 180 Tablet 0 [id number] 754 Taking 11/26 00:00 :00 Lisinopril- hydroCHLORO thiazide 20-12.5 MG Tablet 1 180 Tablet 0 [id number] 754 Start 11/26 00:00 :00 Lisinopril- hydroCHLORO thiazide 20-12.5 MG Tablet 0 180 Tablet 1 [id number] 101 Stop 08/14 00:00 :00 Pantoprazol e Sodium 40 MG Tablet Delayed Release 1 90 Tablet 1 [id number] 71 390 Start 08/14 00:00 :00 Pantoprazol e Sodium 40 MG Tablet Delayed Release 0 90 Tablet 1 [id number] 71 390 Stop 07/04 00:00 :00 Pantoprazol e Sodium 40 MG Tablet Delayed Release 1 90 Tablet 1 594754 71 390 Taking 05/17 00:00 :00 Pantoprazol e Sodium 40 MG Tablet Delayed Release 1 90 Tablet 1 [id number] 71 390 Taking 02/22 00:00 :00 Pantoprazol e Sodium 40 MG Tablet Delayed Release 1 90 Tablet 1 [id number] 71 390 Start 02/22 00:00 :00 Pantoprazol e Sodium 40 MG Tablet Delayed Release 0 90 Tablet 0 [id number] 71 390 Stop 01/03 00:00 :00 Pantoprazol e Sodium 40 MG Tablet Delayed Release 1 90 Tablet 0 [id number] 71 390 Taking 11/26 00:00 :00 Pantoprazol e Sodium 40 MG Tablet Delayed Release 1 90 Tablet 0 [id number] 71 390 Start 11/26 00:00 :00 Pantoprazol e Sodium 40 MG Tablet Delayed Release 0 90 1 [id number] 910 Stop 07/04 00:00 :00 Plaquenil 200 MG Tablet 1 367481 56 210 Taking 05/17 00:00 :00 Plaquenil 200 MG Tablet 1 [id number] 56 210 Taking 01/03 00:00 :00 Plaquenil 200 MG Tablet 1 [id number] 56 210 Taking 05/17 00:00 :00 Tamiflu 75 MG Capsule 05/17/2024 00:00:00 1 10 Capsule 0 [id number] 085 P Start
--- OUTSIDE RECORDS SUMMARY | 2024-10-16 09:29 | XMS_ITS | Clinical Summary ---
Author Organization [facility] Address [address] [id number] Care Team Providers Care Weigh Box Tender Name Role Phone Jay Conrad MD Primary Care Provider [phone] Immunizations Immunization Administration Dates Next Due Luis Eduardo COVID-19 Vaccine (Blue Cap) 18+ 06/18/19 21 Family History Medical History Relation Name Comments Other cancer Other Relation Name Status Comments Other Social History Tobacco Use Types Packs/Day Years Used Date Smoking Tobacco: Former Alcohol Use Standard Drinks/Week Comments No 0 (1 standard drink = 0.6 oz pur e alcohol) Comments Unknown Sex and Gender Information Value Date Recorded Sex Assigned at Female 04/01/2021 4:37 PM EST Legal Sex Female 8:01 PM EDT Gender Identity Female 04/01/2021 4:37 PM EST Sexual Orientation Not on file Last Filed Vital Signs Vital Sign Reading Time Taken Comments Blood Pressure 120/80 03/29/2019 2:28 PM EST Pulse - - Temperature - - Respiratory Rate - - Oxygen Saturation - - Inhaled Oxygen Concentration - - Weight 84 kg (185 lb 3 oz) 03/29/2019 2:28 PM ES T Height 165.1 cm (5' 5 ) 03/29/2019 2:28 PM EST Body Mass Index 30.82 03/29/2019 2:28 PM EST Plan of Treatment Health Maintenance Due Date Last Done Comments [facility]-Bone Density Scan 1956 [facility]-Depression Screening 1956 [facility]-/Child/Adol SDOH Screenings 1955 [facility]- SDOH Screenings 1974 [facility]-Adult SDOH Screenings 1974 CT Colonography 2001 Colonoscopy 2001 FIT-DNA 2001 FIT 2001 FOBT 2001 Sigmoidoscopy 2001 [facility]-Colorectal Cancer Screening 2001 [facility]-Zoster Vaccines (1 of 2) 2006 [id number] Vaccine (2 - season) 2023 06/17/2020 [facility]-Influenza Vaccine (#1) 2024 02/24/2021, [facility]-Pneumococcal Vaccine: 50+ Years (3 of 3 - PCV20 or PCV21) 06/30/2026 06/30/2021, 12/23/2017 [facility]-DTaP,Tdap,and Td Vaccines (2 - Td or Tdap) 08/11/2028 08/11/2018 [facility]-RSV Vaccine: 60+ Years or (1 - 1-dose 75+ series) 05/25/2031 [facility]-Breast Cancer Screening Discontinued 02/10, 02/24/2023, 11/04/2021, Additional history exists HPV Vaccines Aged Out No longer eligi ble based on patient's age to complete this topic [facility]-HIB Vaccines Aged Out No longer e ligible based on patient's age to complete this topic [facility]-Hepatitis A Vaccines Aged Out No longer eligible based on patient's age to complete this topic [facility]-IPV Vaccines Aged Out No longer e ligible based on patient's age to complete this topic [facility]-Rotavirus Vaccines Aged Out No lo nger eligible based on patient's age to complete this [place] [address] [facility] Care Teams Weigh Box Tender Relationship Specialty Start Date End Date Jay Conrad MD [address] [place] [address] [place] [address] PCP - General 07/24/20
--- OUTSIDE RECORDS SUMMARY | 2024-10-16 09:29 | XMS_ITS ---
Author Organization [facility] [employer] [facility] Address [address] [place] [address] Care Team Providers Care Shank Rander Name Role Phone Jay Conrad MD Primary Care Provider Active Problems Problem Noted Date Diagnosed Date Other fatigue 06/26/2024 Osteopenia 12/25/2023 Assessment & Plan (06/26/2024 11:14 AM EDT): 2017: Osteopenia of spine (-2.2), normal left hip DEXA 01/20/2022 showed normal bone density in left hip and left femoral neck. Osteopenia in her lumbar spine. Worst T-score is -1.9 in the lumbar spine. Improvement in all areas from last DEXA in 2016 Plan: Continue DEXA every two years. Next due January 2024. Order placed today. Rare use of prednisone Total hysterectomy 2018 2000IU of vitamin D 3 gel caps per day. 800-1000MG of Calcium per day. Not to exceed 1200mg. Assessment & Plan (12/25/2023 1:06 PM EDT): 2017: Osteopenia of spine (-2.2), normal left hip DEXA 01/20/2022 showed normal bone density in left hip and left femoral neck. Osteopenia in her lumbar spine. Worst T-score is -1.9 in the lumbar spine. Improvement in all areas from last DEXA in 2016 Plan: Continue DEXA every two years. Next due January 2024. Rare use of prednisone Total hysterectomy 2018 2000IU of vitamin D 3 gel caps per day. 800-1000MG of Calcium per day. Not to exceed 1200mg. 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 Would hold Enbrel for any infection or illness, Seek treatment and when well and illness is resolved you may restart medication. Assessment & Plan (12/25/2023 1:06 PM EDT): Enbrel and Plaquenil well tolerated and very effective QTB 03/04 Hepatitis panel negative 03/04 Plan: Annual OCT eye exam 07/04 CBC, CMP, ESR, CRP q 4 months. 03/04 Cr 1.0/55, HGB 16.5, HCT 49.7 Would hold Enbrel for any infection or illness, Seek treatment and when well and illness is resolved you may restart medication. Rheumatoid arthritis 03/04/2019 Assessment & Plan (06/26/2024 11:10 AM EDT): Dx: 2001 low positive anti-CCP antibody. Positive rheumatoid factor Previous Rx: Methotrexate (intolerance), leflunomide (allergy) Current Rx: Plaquenil 200 mg BID, On Enbrel since April 2012 She is following with pulmonology for pulmonary nodules, though to be secondary from prior granulomatous disease or RA. They have remained stable over 2 years Currently doing well on medication without significant pain or swelling. Plan: Continue Enbrel Continue Plaquenil once daily She is using hemp infused oil when she has a flare. She has not used this in a long time. She did well this winter with only 2 small flares. She does not use steroid tapers often Assessment & Plan (12/25/2023 1:06 PM EDT): Dx: 2001 low positive anti-CCP antibody. Positive rheumatoid factor Previous Rx: Methotrexate (intolerance), leflunomide (allergy) Current Rx: Plaquenil 200 mg BID, On Enbrel since April 2012 She is following with pulmonology for pulmonary nodules, though to be secondary from prior granulomatous disease or RA. They have remained stable over 2 years Currently doing well on medication without significant pain or swelling. Plan: Continue Enbrel Continue Plaquenil once daily She is using hemp infused oil. 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 I congratulated her on smoking cessation. She stopped smoking without use of any smoking cessation aides. Assessment & Plan (12/25/2023 1:07 PM EDT): Intermittent habit. She last quit smoking in May 2021, but is smoking currently. Plan: I think that her smoking and COPD is the reason why her hemoglobin is higher than normal. If her hemoglobin continues to rise, will refer to hematology Current Treatment and Therapy Plans No current plan information found. Past Treatment and Therapy Plans No past plan information found. Treatment Summaries Malignant neoplasm of left ovary* Ovarian Cancer Survivorship Plan General Information Patient name Melania Rose Date of 1955 Phone Email No e-mail address on record Cancer Treatment Team Patient Care Team: Mikki Anderson MD as Consulting Physician (Gynecologic Oncology) Camila Orozco APRN as Nurse Practitioner (Nurse Practitioner) Provider Phone numbers Care Team Provider: Jay Conrad MD, ([phone]) Care Team Provider: Mikki Anderson MD, ([phone]) Care Team Provider: Camila Orozco APRN, ([phone]) Care Team Provider: Monica Edmonds DO, ([phone]) Post Treatment Care Team Primary Care Physician Jay Conrad MD [address] [facility] [address] [place] [address] Background Information Family oncology history Cancer-related family history includes Breast cancer (age of onset: 64) in her mother; Breast cancer (age of onset: 70) in her paternal grandmother; Colon cancer (age of onset: 64) in her mother. There is no history of Ovarian cancer. Genetic Testing Genetic testing: Yes, prior to diagnosis due to family history Testing results: negative. 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 No surface involvement. Right ovary, appendix, omentum, biopsies, and all lymph nodes negative. Debulking Optimal Residual disease R = 0 Neoadjuvant Chemotherapy No Regimen Adjuvant Chemotherapy No, observation recommended Regimen Treatment on Clinical Trial N/A Regimen Date of Completion of Primary Therapy Date: 05/15/2017 Disease Status Complete Clinical Response / No Evidence of Disease Persistent Treatment-Associated Adverse Effects at Completion of Therapy It is important to recognize that not every woman experiences the following adverse events after treatment. You may not have any of these issues, a few, or many adverse effects. Experiences are highly variable. Please discuss any adverse effects of cancer treatment with your cancer care team. ?After Surgical Therapy ??? Menopausal symptoms: hot flashes, night sweats, irritability, insomnia, and vaginal dryness mayoccur. See your health care provider about non-medication recommendations and medication-based treatments. ??? Leg swelling: Minimal to pronounced lower leg swelling can occur. Symptom control with compression hose, lymphedema massage, or specialized physical therapy can be ordered. Leg swelling can also be an indication of post-operative complications and should be evaluated by your provider. ??? Sexual intimacy issues: Vaginal dryness and scarring at the top of the vagina causing discomfort can occur. Decreased sexual desire can also occur. Use of a lubricant can help prevent or improve vaginal symptoms. If symptoms persist, talk to your provider about alternate treatments. It is not uncommon for cancer to impact other areas of your life such as relationships, work, spirituality, and mental health. If you develop financial concerns, resources are sometimes available to assist in these areas. Depression and anxiety can present either during or after cancer diagnosis and treatment. It is important to discuss with you physician any of these concerns so these resources can be made available to you. Society of Gynecologic Oncology Recommendations What you can do to stay healthy after treatment: Cancer treatments may increase your chance of developing other health problems years after you havecompleted treatment. You can take steps to maintain good health after cancer treatment, including coping with side effects of treatment, reducing the risk of cancer returning, and watching for signs of cancer returning or of a new cancer. Keep in mind that every person treated for cancer is different and that these recommendations are not intended to be a substitute for the advice of a doctor or other health clinical care coordinator. Please use these recommendations to talk with your doctor and healthcare team about and appropriate follow-up care plan for you. Recommendation for Follow-up for Ovarian Cancer: Have a medical history and physical exam that is focused on detecting signs of cancer recurrence orof new cancers, including a detailed pelvic exam (speculum, pelvic and rectovaginal; however, a routine Pap smear is not recommended for routine cancer follow up). Frequency depends on stage of cancer and other risk factors. For instance, if you had a higher stage of cancer, you may be seen more often. See the table below for general guidelines. If you had ovarian cancer once, there is a chance that it may come back or spread to other parts ofyour body. The risk is highest in the first two to three years after treatment, but continues for at least five years. After five years, it is recommended that you have a careful history and physicalincluding pelvic exam (check-up) every 12 months for the rest of your life. After cancer treatment, if you feel that something is not right with your body, see your regular doctor, physician technical staff assistant or nurse practitioner. Symptoms to report to your health care team includeabdominal distension, feeling full easily, new and persistent nausea and vomiting, bloating, vaginal bleeding, rectal bleeding, weight loss without effort, new and persistent pain, new and persistentfatigue, new masses (i.e., bumps in your neck or groin), new and persistent cough and any other concerns. If what you are feeling is urgent, and you cannot get an appointment with your regular healthcare team, go to an Urgent Care or Medical Walk-In Clinic. Tell the medical provider you had cancer. Show them a copy of your cancer treatment summary. Ovarian Cancer Support & Resources [facility] Tugboat Engineer: [facility] Henrietta Gonzalez [phone] Financial Counselor and Contact Information: [facility] Financial Counseling [phone] [employer] Carver Contact Information: Evelia Graves [phone] Local Cancer Support Group and Contact Information: [facility] Ovarian Cancer Support [address], [place] [address] [email or web address] Haskell Myke ([facility]) Yoga for Cancer Patients: Mondays and Wednesdays @ 10AM [employer] offers a free 1 month membership to cancer patients Look Good Feel Better is a non-medical, brand-neutral public service program that teaches beauty techniques to people with cancer to help them manage the appearance-related side effects of cancer treatment. The program includes lessons on skin and nail care, cosmetics, wigs and turbans, accessoriesand styling, helping people with cancer to find some normalcy in a life. - See more at: http://lookgoodfeelbetter.org Journey Toward Empowerment - for Women with Cancer ([facility]) The Tools and encouragement you need to live your life to the fullest. Free Dinner served @ 6:00pm followed by speaker from 6:30 - 7:30pm. The series runs from December, and meets monthly. Call Alessia Page RN, OCN @ [phone] to receive information and upcoming schedule. [facility]: This support group is open to anyone that has been diagnosed with cancer of any type cancer. Meets at 6:30pm on the last Monday of each month. Location: [employer]; [address] [place] [address]. For more information call Jackelin Acharya @ [phone]. Follow-up and Survivorship Care How Frequent? Coordinating Provider Gynecologic Oncology visits Every 3 months for the first 2 years, then every 6 months until the 5 year sanjuana. Annual visits recommended after [address] Mikki Anderson & Camila Orozco APRN Lab tests CA-125 every 6-[address] scan for elevating CA-125, new concerning symptoms, or abnormal findings on physical exam Call your doctor if you have any of these signs or symptoms Vaginal bleeding, pelvic pain, abdominal fullness/bloating, or changes in bowel or bladder function Referrals provided There are no referral needs at this time. General Cancer Screening for Women Cancer screening tests are designed to find cancer or pre-cancerous areas before there are any symptoms and, generally, when treatments are most successful. Various organizations have developed guidelines for cancer screening for women. While these guidelines vary slightly between different organizations, they cover the same basic screening tests for breast, cervical and colorectal cancers. In addition, during routine health examinations (at any age) your health care provider may also evaluate for cancers of the skin, mouth and thyroid. Not all screening tests are right for everyone. Your personal and family cancer history, and/or the presence of a known genetic predisposition, can affect which tests are right for you, and at what age you begin them. Therefore, you should discuss these with your health care provider. Your care plan will also include a section on follow up care foryour type of cancer, and these recommendations override the general screening recommendations for that particular type of cancer in the general population. The [place] [employer] Society (ACS) recommends these screening guidelines for women: ??? Breast Cancer: - Yearly mammograms for women over 40. Women 55 and older should switch to mammograms every 2 years, or may continue yearly screenings. This should continue as long as the woman is in good health. - Some women - because of family history, a genetic tendency, or certain other factors - should be screened with MRIs along with mammograms. The number of women who fall into this category is very small. - Talk with a health care provider about your personal history and whether you qualify for early ormore advanced screening. Know how your breasts normally feel and report any breast changes to your doctor right away. ??? Colon and Rectal Cancer: - Starting at age 50, women should follow one of these testing plans. If you are at high risk, based upon personal or family history, you may need to begin screenings early or have them done more often. Talk with a health care provider about the testing plan that is best for you. o Tests that find polyps and cancer: - Colonoscopy every 10 years (This is the ???gold standard?? ) - Flexible sigmoidoscopy every 5 years - Double-contrast barium enema every [address] - [address] colonography (virtual colonoscopy) every 5 years o Tests that mostly find cancer: - Yearly guaiac-based fecal occult blood test (gFOBT) - Yearly fecal immunochemical test (FIT) - Stool DNA test (sDNA) every 3 years - Tests that can find both early cancer and polyps should be your first choice if available and youare willing to have one of them. If any of the alternative tests are chosen and there are positive findings, a colonoscopy should be done - Multiple stool take home tests should be used for the gFOBT or FIT tests. One test in the office is not enough. If these are positive, a colonoscopy should be done. ??? Cervical Cancer: - Screening should begin at age 21 with a Pap test every 3 years. HPV testing should be only used in women 21-29 if needed after an abnormal result. - Women 30-65 may have a Pap test plus and HPV test (???co-testing?? ) every 5 years - Women over 65 with a negative history or who have had regular cervical cancer testing within the past 10 years may discontinue screenings. If there is a history of serious cervical pre-cancer, testing should continue for at least 20 years even if it goes past age 65. - All women who have been vaccinated against HPV should still follow the screening recommendations for their age group. - Some women - because of their health history - may need a different screening schedule or continued screenings after a total hysterectomy. Your health care provider will help to determine the best screening schedule for you. Healthy Lifestyle For some cancer survivors, the experience is the impetus to making healthy lifestyle changes. It may seem insignificant, but these changes have been shown to reduce the risk of the cancer coming backor a new cancer developing. Below are some tips on adopting a healthier lifestyle. ??? Practice sun safety: - Skin cancer is the most commonly diagnosed type of cancer, and rates are on the rise. It affects both light and dark-skinned people. In most cases, however, it can be prevented or detected early. - Exposure to ultraviolet (UV) rays, either by natural sunlight or tanning beds, can lead to skin cancer. In addition, UV rays lead to other forms of skin damage, including wrinkles, loss of skin elasticity, dark patches (sometimes called age spots or liver spots), and pre-cancerous skin changes (such as dry, scaly, rough patches). - Sun safety is primary form of prevention: use a broad spectrum sunscreen, avoid peak sun times when rays are strongest (10 am to 4 pm), wear protective clothing, and avoid tanning beds - Examine your skin regularly and have a health care provider examine any concerning areas of molesthat have changed. Many dermatologists recommend a yearly head-to-toe skin check. ??? Maintain a healthy weight: - Being overweight can increase your chance of your cancer coming back. It can also increase your chance of developing heart disease, diabetes, and stroke. - Weight management is different for each woman. You should talk to your health care provider aboutwhat a healthy weight is for you, and take steps to reach and maintain that weight. - Reaching ideal weight can be challenging for many people. However, losing even 5 to 10 pounds canlower blood pressure, blood sugar, and cholesterol levels. ??? Eat a healthy diet: - A healthy diet includes plenty of fruits and vegetables daily. Strive to have two-thirds of your plate be vegetables, fruits, whole-grains or beans. - Limit red meats and processed foods. Fish, chicken, and turkey are healthier choices. One-third or less of your plate should be animal products. - Drink more water. Limit sodas, juices, and alcohol. ??? Exercise regularly: - Experts recommend at least 30 minutes of [id number]-[id number] activity 5 days per week. This can help control weight, improve energy level, and improve sleep. - Exercise routines should be tailored to individual patients. They jennings is to find an activity thatyou enjoy (dancing, walking, gardening, etc.) and do it regularly. If you have been inactive for a while, start out slow. Talk to your health care provider about and exercise program that will be beneficial and safe for you. ??? Keep your bones healthy: - Screening for osteoporosis typically begins at age 65 or younger if your fracture risk is increased. Women can lose up to 20 percent of their bone density after menopause. - Certain cancer treatments, such as chemotherapy or hormonal therapy, can cause bone loss. - Eating healthy, regular weight bearing exercise, and getting enough calcium and vitamin D can allhelp to maximize bone density, preventing fracture and osteoporosis. ??? Avoid tobacco in any form: - If you use tobacco of any kind, quit as soon as possible. - Continued smoking can lead to recurrence of some cancers and is related to many devastating health conditions - Smoking is the most preventable cause of in the [place]. Ask your doctor about smoking cessationor call the national hotline at 9-362-ZLIR-NOW ??? Have regular check-ups: - Keep up-to-date on recommended health screening tests, regular blood work, and vaccinations. Get a flu shot annually. Get the pneumococcal vaccine as recommended by your health care team. - Don???t forget dental and eye health. The [place] [employer] Association recommends adults see theirdentist at least once per year. The [place] [employer] recommends adults have their eyes examined every two years until age 60, then annually. If you wear corrective lenses, have diabetes, or have a family history of eye disease it may be recommended that you be seen more frequently. Resolved Problems Problem Noted Date Diagnosed Date Resolved Date Post-operative state 05/28/2017 019 Pelvic mass in female 05/03/20172017
--- OUTSIDE RECORDS SUMMARY | 2024-10-16 09:29 | XMS_ITS | Patient Health Record ---
Author Organization [facility] Address [address] [place] [address] Care Team Providers Care In Service Education Teacher Name Role Phone Marie Purdy Unavailable [phone] FarheenMarge Unavailable [phone] Allergies Allergen (clinical drug ingredient) Drug/Non Drug Allergy documented on EMR Reaction Allergy Type Onset Date Status CODEINE PHOSPHATE (CODEINE PHOSPHATE SOLN) Unspecified Drug Allergy 04/28/2017 Active tetracycline Tetracycline HCl Unknown Drug Allergy Active Reason For Referral No Information Medications Medication SIG (Take, Route, Frequency, Duration) Notes Start Date End Date Status Flecainide Acetate A ctive Hydroxychloroquine Sulfate Active Enbrel SureClick Act delmar Famotidine Active Ciclopirox Active Eliquis Active Albuterol Sulfate HFA Active Pantoprazole Sodium Active Atorvastatin Calcium Active Acyclovir Active Lisinopril-hydroCHLOROthiazide Active Isosorbide Mononitrate ER Active Social History Tobacco Use: Social History Observation Description Date Details (start date - stop date) Former Smoker NA - NA Sex Assigned At : Social History Observation Description Sex Assigned At Female Social History Tobacco Use: Social Info Question Answer Notes Tobacco Use/Smoking Are you a former smoker Problems Problem Type SNOMED Code ICD Code Onset Dates Problem Status W/U Status Risk Notes Problem *Continuous Churn Buttermaker exam with abnormal finding (Code also - abnormal finding(s) (Z01.411) 8 Active confirmed Annual with abnormal findings Problem History of malignant neoplasm of ovary (214227211) History of ovarian cancer (Z85.43) Active confirmed Vital Signs Blood pressure diastolic 86 mm Hg 04/04/2024 Height 65 in 04/04/2024 Blood pressure systolic 124 mm Hg 04/04/2024 Weight 170 lbs 04/04/2024 BMI 28.29 kg/m2 04/04/2024 Encounters Encounter Location Date Provider Diagnosis [facility] [address] [place] [address] 04/04/2024 Marge Farheen Continuous Churn Buttermaker exam without abnormal findings Z01.419 and Encounter for screening mammogram for malignant neoplasm of breast Z12.31 Assessments Encounter Date Diagnosis (ICD Code) Assessment Notes Treatment Notes Treatment Clinical Notes Section Notes 04/04/2024 Continuous Churn Buttermaker exam without abnormal findings (ICD-10 - Z01.419) Normal annual exam Pap not indicted, pt declines pelvic exam BSE, MMG Colonoscopy encouraged F/u annual exam or prn 04/04/2024 Encounter for screening mammogram for malignant neoplasm of breast (ICD-10 - Z12.31) Plan Of Treatment No Information Insurance Providers Payer Name Payer Address Payer Phone Subscriber Number Group Number Insured Name Patient Relationship to Insured Coverage Start Date Coverage End Date [place] [address] [place] [address] [id number] Charity Rose Self - patient is the insured 2 [employer] [place] PPO [address] [place] [address] [id number] Charity Rose Self - patient is the insured 2 Medical (General) History Medical History History ICD Code Acid reflux abnormal pap heart disease Ovarian Cancer in 2017 AFib Sleep apnea HTN Hyperthyroid Surgical History Surgery Date(Month/Year) band aid breast augmentation hyst 2017 parathyroidectomy
--- OUTSIDE RECORDS SUMMARY | 2024-10-16 09:29 | XMS_ITS | Encounter Summary ---
Author Organization [facility] Address [address] [place] [address] Care Team Providers Care Fleet Maintenance Manager Name Role Phone Jay Conrad MD Primary Care Provider Encounter Details Date Type Department Care Team (Late Contact Info) Description 06/24/2024 Results Follow-Up [facility] [address] [address] Bora Ndiaye APRN [address] [place] [phone] Social History Tobacco Use Types Packs/Day Years Used Date Smoking Tobacco: Every Day Cigarettes 0.5 42 Started: 04/1975; Last attempted to quit: 04/2017 Smokeless Tobacco: Never Comments:patient has quit [...] Description 12/26/2024 11:30 AM EDT Office Visit [facility] [address] [address] Huber Miles MD [address] [facility] [address] [place] [address] documented as of this encounter Visit Diagnoses Not on filedocumented in this encounter Care Teams Fleet Maintenance Manager Relationship Specialty Start Date End Date Jay Conrad MD [address] [facility] [address] [facility] 2 [place] [address] PCP - General 05/26/15 documented as of this encounter
--- OUTSIDE RECORDS SUMMARY | 2024-10-16 09:30 | XMS_ITS | Clinical Summary ---
Author Organization [facility] Address [address] [place] [address] Care Team Providers Care Ui Ux Web Developer Name Role Phone Jay Conrad MD Primary Care Provider Allergies Active Allergy Reactions Criticality Noted Date Comments Codeine GI Intolerance High 07/05/2016 Doxycycline Hyclate GI Intolerance High 05/09/2017 Leflunomide Rash Low 07/27/2021 Medications pantoprazole (PROTONIX) 40 MG EC tablet Take 1 tablet by mouth Daily. Active atorvastatin (LIPITOR) 20 MG tablet Take 1 tablet by mouth Daily. Active aspirin 81 MG EC tablet Take 1 tablet by mouth Daily. Active apixaban (ELIQUIS) 5 MG tablet tablet Take 1 tablet by mouth 2 (Two) Times a Day. Active lisinopril-hydro chlorothiazide (PRINZIDE,ZESTOR ETIC) 20-12.5 MG per tablet Take 1 tablet by mouth Daily. Active isosorbide mononitrate (IMDUR) 30 MG 24 hr tablet Take 1 tablet by mouth Daily. 2 Active flecainide (TAMBOCOR) 50 MG tablet Take 1 tablet by mouth Every 12 (Twelve) Hours. Active hydroxychloroqui ne (PLAQUENIL) 200 MG tablet Take 1 tablet by mouth Every 12 (Twelve) Hours. 90 tablet 1 4 Active Etanercept (Enbrel SureClick) 50 MG/ML solution auto-injector Inject 50 mg under the skin into the appropriate area as directed Every 7 (Seven) Days. 4 each 5 5 Active Active Problems Problem Noted Date Diagnosed Date [...] Assessment & Plan (12/25/2023 1:06 PM EDT): 2016: Osteopenia of spine (-2.2), normal left hip [...] Dyslipidemia 11/23/2016 Coronary artery disease invo lving [place] coronary artery of [place] heart without angina pectoris 11/23/2016 Tobacco abuse [...] continues to rise, will refer to hematology Resolved Problems Problem Noted Date Diagnosed Date Resolved Date Post-operative state 05/28/2017 019 Pelvic mass in female 05/03/20172017 Encounters Date Type Department Care Team Description 08/08/2024 Refill [facility] [address] [address] Huber Miles MD from Last 3 Months Immunizations Immunization Administration Dates Next Due Influenza, Unspecified 12/11/2018 Family History Medical History Relation Name Comments No Known Problems Brother 1 No Known Problems Brother 2 Hypertension Father Breast cancer Mother Colon cancer Mother Heart attack Other Heart disease Other Hyperlipidemia Other Hypertension Other Lung cancer Paternal Grandfather Breast cancer Paternal Grandmother Rheum arthritis Sister 1 No Known Problems Sister 2 Ovarian cancer Neg Hx Relation Name Status Comments Brother 1 Alive Brother 2 Alive Father Alive Mother Other Paternal Grandfather Paternal Grandmother Sister 1 Alive Sister 2 Alive Social History Tobacco Use Types Packs/Day Years [...] on file Sexual Orientation Not on file Last Filed Vital Signs Vital Sign Reading Time Taken Comments Blood Pressure 122/74 06/26/2024 10:58 AM EDT Pulse 76 06/26/2024 10:58 AM EDT Temperature 36.6 C (97.9 F) 06/26/2024 10:58 AM EDT Respiratory Rate 18 08/02/2022 1:30 PM EDT Oxygen Saturation 96% 08/02/2022 1:30 PM EDT Inhaled Oxygen Concentration - - Weight 80 kg (176 lb 4.8 oz) 06/26/2024 10:58 AM EDT Height 166.4 cm (5' 5.5 ) 06/26/2024 10:58 AM ED T Body Mass Index 28.89 06/26/2024 10:58 AM EDT Plan of Treatment Upcoming Encounters Date Type Department Care Team (Late st Contact Info) Description 12/26/2024 11:30 AM EDT Office Visit [facility] [address] [id number] Huber Miles MD [address] [address] Health Maintenance Due Date Last Done Comments COLOGUARD 2001 COLON CANCER SCREENING 5 YEA R SIGMOIDOSCOPY [address] COLONOGRAPHY 2001 FECAL OCCULT BLOOD TEST 2001 FIT Testing (1 year) 2001 ZOSTER VACCINE (1 of 2) 2006 ANNUAL WELLNESS VISIT 07/05/2016 HEPATITIS C SCREENING 07/05/2016 LUNG CANCER SCREENING 11/22/2017 11/22/2016, 017 COVID-19 Vaccine (2023-04 5 season) 2023 06/17/2020 INFLUENZA VACCINE 12/11/2024 02/24/2021, , 12/11/2018 MAMMOGRAM 04/25/2026 04/25/2024, 02/10, 02/24/2023, Additional history exists Pneumococcal Vaccine 50+ (3 of 3 - PCV20 or PCV21) 06/30/2026 06/30/2021, 12/23/2017 DXA SCAN 07/04/2026 07/04/2024, 12/12/2023 TDAP/TD VACCINES (2 - Td or Tdap) 08/11/2028 019 COLONOSCOPY 12/19/2028 12/19/2018, 04/11/2014 COLORECTAL CANCER SCREENING 12/19/2028 Procedures Procedure Name Priority Date/Time Associated Diagnosis Comments DEXA BONE DENSITY AXIAL Routine 07/04/2024 Osteopenia of spine MAMMO SCREENING DIGITAL TOMOSYNTHESIS BILATERAL W CAD Routine 04/25/2024 1:18 PM EST Breast cancer screening by mammogram SCANNED - COLONOSCOPY 12/19/2018 CT CHEST WO CONTRAST DIAGNOSTIC Routine 11/22/2016 8:57 AM EDT Lung nodule from Last 3 Months or Most Recently Relevant to Health Maintenance Results * DEXA Bone Density Axial (07/04/2024) Anatomical Region Laterality Modality Wrist, Hip, L-spine N/A Radiographic Imaging Bora Ndiaye APRN IM DXA ORDERABLES Fin al Result * Mammo Screening Digital Tomosynthesis Bilateral With CAD (04/25/2024 1:18 PM EST) Anatomical Region Laterality Modality Breast N/A Mammography 04/30/2024 12:4 6 PM EST Impressions 04/30/2024 12:47 PM EST Benign screening mammogram. RECOMMENDATION: Continue annual screening mammography. BI-RADS CATEGORY 2, BENIGN. CAD was utilized. The standard false-negative rate of mammography is between 10% and 25%. Complex patterns or increased breast density will markedly elevate the false-negative rate of mammography. A letter, in lay terminology, with the results of this exam will be mailed to the patient. 04/30/2024 12:[address] Paula Chris MD on Narrative 04/30/2024 12:47 PM EST DIGITAL SCREENING MAMMOGRAM WITH TOMOSYNTHESIS HISTORY: Screening Mammography. Low dose full field digital breast tomosynthesis imaging was performed with 2D and 3D acquisitions consisting of bilateral CC and MLO views. Standard as well as implant displaced views were performed. Examination is compared to prior examination dating back to 05/29/2015. Examination is read in conjunction with computer aided detection. FINDINGS: The breasts are heterogeneously dense, which may obscure small masses. Retroglandular implants with capsular calcification and extracapsular silicone is again noted. No suspicious masses, microcalcifications or areas of architectural distortion are identified. Simon Tristan MD IMG MAMMOGRAPHY ORDERAB LES Final Result * SCANNED - COLONOSCOPY (12/19/2018) Camila Amalia Orozco ELECTRICAL LINE MECHANIC CHART REVIEW TABS F inal Result * CT Chest Without Contrast (11/22/2016 8:57 AM EDT) Anatomical Region Laterality Modality Chest N/A Computed Tomogra phy 11/22/2016 1:50 PM EDT Impressions 11/22/2016 10:16 PM EDT 1. Previously noted groundglass disease of the lungs has resolved since 05/20/2016. 2. Stable mild chronic appearing changes elsewhere as noted. No evidence of pulmonary parenchymal mass, pneumonia, or other active chest disease. E: 11/22/2016 This report was finalized on 11/22/2016 10:[address] Richardson Kan MD. Narrative 11/22/2016 10:16 PM EDT EXAMINATION: CT CHEST WO CONTRAST-11/22/2016: INDICATION: LUNG NODULE; R91.1-Solitary pulmonary nodule. TECHNIQUE: 5 mm unenhanced images through the chest and upper abdomen. The radiation dose reduction device was turned on for each scan per the ALARA (As Low as Reasonably Achievable) protocol. COMPARISON: 05/20/2016 low-dose screening scan. FINDINGS: Report of the previous study indicates mild diffuse bronchiectasis and centrilobular emphysema, ill-defined right upper lobe groundglass nodule. The patient history indicates dyspnea with exertion. Current history of tobacco abuse. Today's exam shows no trace of the previously described right upper lobe groundglass disease, presumably a mild inflammatory process that has resolved. Likewise the denser subpleural interstitial changes seen in the left upper lobe have resolved also. Mild subpleural interstitial changes elsewhere appear stable and may represent minor changes of fibrosis. There is no evidence of any remaining groundglass disease elsewhere. There is a bland appearing nodule or perhaps 2 small adjacent nodules, 6 x 4 mm in diameter in the medial right upper lobe, superior segment, stable from the prior exam. There is stable trace subpleural linear scarring elsewhere. No effusion is seen. Mediastinal window images show no evidence of adenopathy. No pericardial or pleural effusion is seen. Included images of the upper abdomen show no significant abnormalities of the visualized portions of the liver, gallbladder, spleen, pancreas, adrenal glands, or upper renal poles. Procedure Note Richardson Kan MD - 11/22/2016 EXAMINATION: CT CHEST WO CONTRAST-11/22/2016: INDICATION: LUNG NODULE; R91.1-Solitary pulmonary nodule. TECHNIQUE: 5 mm unenhanced images through the chest and upper abdomen. The radiation dose reduction device was turned on for each scan per the ALARA (As Low as Reasonably Achievable) protocol. COMPARISON: 05/20/2016 low-dose screening scan. FINDINGS: Report of the previous study indicates mild diffuse bronchiectasis and centrilobular emphysema, ill-defined right upper lobe groundglass nodule. The patient history indicates dyspnea with exertion. Current history of tobacco abuse. Today's exam shows no trace of the previously described right upper lobe groundglass disease, presumably a mild inflammatory process that has resolved. Likewise the denser subpleural interstitial changes seen in the left upper lobe have resolved also. Mild subpleural interstitial changes elsewhere appear stable and may represent minor changes of fibrosis. There is no evidence of any remaining groundglass disease elsewhere. There is a bland appearing nodule or perhaps 2 small adjacent nodules, 6 x 4 mm in diameter in the medial right upper lobe, superior segment, stable from the prior exam. There is stable trace subpleural linear scarring elsewhere. No effusion is seen. Mediastinal window images show no evidence of adenopathy. No pericardial or pleural effusion is seen. Included images of the upper abdomen show no significant abnormalities of the visualized portions of the liver, gallbladder, spleen, pancreas, adrenal glands, or upper renal poles. IMPRESSION: 1. Previously noted groundglass disease of the lungs has resolved since 05/20/2016. 2. Stable mild chronic appearing changes elsewhere as noted. No evidence of pulmonary parenchymal mass, pneumonia, or other active chest disease. E: 11/22/2016 This report was finalized on 11/22/2016 10:[address] Richardson Kan MD. Greg Ho MD IMG CT ORDERABLES Final Result from Last 3 Months or Most Recently Relevant to Health Maintenance Insurance [address] [place], [place] [id number] MEDICARE A & B Advance Directives Documents on File Type Date Recorded Patient Lace And Textiles Restorer Expl anation LIVING WILL - SCAN 05/15/2017 8:50 AM POWER OF TRACTOR TRAILER MOVING VAN DRIVER 05/12/2017 LIVING WILL - SCAN 05/15/2017 8:50 AM FARRUKHIN G WILL 05/12/2017 * Full Code (Latest Code Status on File) Date Activated Date Inactivated Comments 05/15/2017 10:35 PM 05/17/2017 4:30 PM Care Teams Ui Ux Web Developer Relationship Specialty Start Date End Date Jay Conrad MD [address] [facility] [address] [facility] [address] [place] [address] [facility] - General 05/26/15
--- OUTSIDE RECORDS SUMMARY | 2024-10-16 09:30 | XMS_ITS | Encounter Summary ---
[facility] Organization [facility] Address [address] [place] [address] Care Team Providers Care Bobtail Driver Name Role Phone Jay Conrad MD Primary Care Provider Encounter Details Date Type Department Care Team (Late Contact Info) Description 06/27/2024 Results Follow-Up [facility]HEUM[facility] [address] [address] Bora Ndiaye APRN [address] [address] Social History Tobacco Use Types Packs/Day Years [...] Description 12/26/2024 11:30 AM EDT Office Visit [facility] [address] [address] Huber Miles MD [address] [facility] [address] [place] [address] documented as of this encounter Visit Diagnoses Not on filedocumented in this encounter Care Teams Bobtail Driver Relationship Specialty Start Date End Date Jay Conrad MD [facility] [address] [place] [address] PCP - General 05/26/15 documented as of this encounter
--- OUTSIDE RECORDS SUMMARY | 2024-10-16 09:30 | XMS_ITS | Encounter Summary ---
[facility] Organization [facility] Address [address] [place] [address] Care Team Providers Care Die Stamper Name Role Phone Jay Conrad MD Primary Care Provider Encounter Details Date Type Department Care Team (Late Contact Info) Description 06/27/2024 Results Follow-Up [facility] RHEUM[facility] [address] [address] Bora Ndiaye APRN [address] [address] Social History Tobacco Use Types [...] Description 12/26/2024 11:30 AM EDT Office Visit [facility] [address] [address] Huber Miles MD [address] [facility] [facility] [facility] 100 [place] [address] documented as of this encounter Visit Diagnoses Not on filedocumented in this encounter Care Teams Die Stamper Relationship Specialty Start Date End Date Jay Conrad MD [facility] [address] [place] [address] PCP - General 05/26/15 documented as of this encounter
--- OUTSIDE RECORDS SUMMARY | 2024-10-16 09:30 | XMS_ITS | Patient Health Record ---
[facility] Address [address] [place] [phone] Care Team Providers Care Rn Stars Name Role Phone Harinder Conrad Primary Care Provider BOB ANMOL Unavailable Unavailable Amilcar Tristan Unavailable [phone] [place] Alarcon Unavailable [phone] Allergies Allergen (clinical drug ingredient) Drug/Non Drug [...] 27 Performing Lab: Notes/Report: Test performed by [facility] [address] [place] [address] , [address], [place] [address] Mark Gonzalez MD, Maintenance Superintendent CLIA: [id number] Sodium 143 135-145 mmol/L Potassium 4.2 3.5-5.3 mmol/L Chloride 101 97-108 mmol/L CO2 29 22-32 mmol/L Glucose 95 65-99 mg/dL BUN 27 8-23 mg/dL Creatinine 0.96 0.50-1.00 mg/dL Calcium 10.2 8.6-10.4 mg/dL eGFR by Creatinine 65 >59 mL/min/1.73m2 Influenza Screen (in house) Reviewed date:05/17/2024 11:04:43 AM Interpretation: Performing Lab: Notes/Report: results Pos A CA-125 Reviewed date:01/11/2024 10:22:42 AM Interpretation:Normal Performing Lab: Notes/Report: Test performed by [facility] [address] [place] [address] Marty Christianson C, [place] [address] Mark Gonzalez MD, Maintenance Superintendent CLIA: [id number] CA-125 16.4 <2-38.1 U/mL This test is performed by the Anton ECLIA methodology. Values obtained with different assay methods or kits cannot be directly compared. P-Basic Metabolic Panel (BMP ) Reviewed date:07/12/2024 12:13:43 PM Interpretation:Normal Performing Lab: Notes/Report: Test performed by [facility] [address] [place] [address] Marty Christianson , [place] [address] Mark Gonzalez MD, Maintenance Superintendent CLIA: [id number] Sodium 141 135-145 mmol/L Potassium 3.9 3.5-5.3 mmol/L Chloride 101 97-108 mmol/L CO2 26 22-32 mmol/L Glucose 100 65-99 mg/dL BUN 22 8-23 mg/dL Creatinine 1.00 0.50-1.00 mg/dL Calcium 10.2 8.6-10.4 mg/dL eGFR by Creatinine 61 >59 mL/min/1.73m2 P-TSH Reviewed date:07/12/2024 12:13:30 PM Interpretation:Normal Performing Lab: Notes/Report: Test performed by [facility] [address] [place] [address] Marty Christianson C, [place] [address] Mark Gonzalez MD, Maintenance Superintendent CLIA: [id number] TSH 0.97 0.43-5.25 mU/L Reason For Referral No Information Medications Medication SIG (Take, Route, Frequency, Duration) Notes Start Date End Date Status Calcium 500 MG 1 tablet with meals Orally Twice a day; Duration: 30 day(s) 07/04/2024 Active Pantoprazole Sodium 40 MG Take 1 tablet by mouth once daily; Duration: 90 Active Lisinopril-hydroCHLORO thiazide 20-12.5 MG Take 1 tablet by mouth twice daily; Duration: 90 Active Plaquenil 200 MG 1 tab(s) orally twic e a day Active Enbrel SureClick 50 MG/ML 50 mg subcutaneously once a week Active Eliquis 5 MG Take 1 tablet by twice daily; Duration: 90 Active Aspirin 81 MG orally once daily Active Atorvastatin Calcium 10 MG 1 tablet Orally Once a day; Duration: 90 days Active CareTouch CPAP & BIPAP Hose 1 DIRECTED G47.30G47.33 02/01/2021 Active Flecainide Acetate 150 MG 1 tab(s) orally bid; Duration: 90 days Active Isosorbide Mononitrate ER 30 MG TAKE 1 TABLET BY MOUTH ONCE DAILY IN THE MORNING; Duration: 90 Active CPAP SUPPLIES DIRECTED 06/28/2021 Act delmar Immunizations Vaccine Route Administration Date Status Comme nts COVID 19 Luis Eduardo Unknown 06/17/2020 Administered Fluzone High Dose (65yr and older) IM Intramuscular 01/05/2023 Administered Fluzone High Dose (65yr and older) IM Intramuscular 01/04/2024 Administered Fluzone PF Quad (6-35 months) Unknown 01/23/2020 Administered Fluzone Quad (6months&older) IM Intramuscular 02/24/2021 Administered Fluzone Quad (6months&older) IM Intramuscular 02/09/2022 Administered Hepatitis A (adult) IM Intramuscular 03/27/2018 Administer ed PNEUMOVAX 23 VACCINE IM Intramuscular 12/23/2017 Administe red Prevnar (PCV13) Unknown 06/28/2021 Pending Shingrix IM Intramuscular 03/27/2018 Administered Shingrix IM Intramuscular 09/19/2018 Administered Tetanus Tdap-Adacel (over 7yrs) IM Intramuscular 08/11/2018 Administered Social History Tobacco Use: Social History Observation Description Date Details (start date - stop date) Current Smoker NA - NA CURRENT TOBACCO USE: Question Answer Notes Are you a: current smoker STOPPED MAY 242021 How many cigarettes a day do you smoke? 5 or les s Problems Problem Type SNOMED Code ICD Code Onset Dates Problem Status W/U Status Risk Notes Problem Essential hypertension (17169930) Essential hypertension (I10) Active confirmed Problem Obstructive sleep apnea (97617274) Obstructive sleep apnea (G47.33) Active confirmed Problem Paroxysmal atrial fibrillation (537901648) Paroxysmal atrial fibrillation (I48.0) Active confirmed Problem Tobacco use (785500656) Tobacco use (Z72.0) Active confirmed Problem Centrilobular emphysema (60108743) Centrilobular emphysema (J43.2) Active confirmed Problem History of atrial fibrillation (020886152) History of atrial fibrillation (Z86.79) Active confirmed Problem Neuropathy (360970824) Neuropathy (G62.9) Active confirmed Problem Rheumatoid arthritis (42409164) Rheumatoid arthritis involving multiple sites with positive rheumatoid factor (M05.79) Active confirmed Problem Atrial fibrillation (05536915) Atrial fibrillation, unspecified type (I48.91) Active confirmed Problem Cervical spondylosis without myelopathy (551032468) Cervical radiculopathy due to degenerative joint disease of spine (M47.22) Active confirmed Problem Hyperlipidaemia (69727624) Hyperlipidemia, unspecified hyperlipidemia type (E78.5) Active confirmed Problem Mental disorder caused by drug (398208884) Cigarette nicotine dependence with nicotine-induced disorder (F17.219) Active confirmed Problem Sleep disturbance (05508917) Sleep disturbance, unspecified (G47.9) Active confirmed Problem Sleep apnea (55497949) Sleep apnea in adult (G47.30) Active confirmed Problem Rheumatoid arthritis (67202199) Rheumatoid arthritis flare (M06.9) Active confirmed Problem Osteopenia (013554895) Osteopenia, unspecified location (M85.80) Active confirmed Problem History of malignant neoplasm of ovary (023742569) Hx of ovarian cancer (Z85.43) Active confirmed Problem Neuropathy of both feet (G57.93) Active confirmed Problem Synovial cyst of left knee (316910764521235) Synovial cyst of left knee (M71.22) Active confirmed Problem Chronic uais-XJZNX-84 syndrome (disorder) (1078561564) 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 8 Weight 178.8 lbs 07/04/2024 178.8 BMI 28.86 kg/m2 07/04/2024 178.8 Encounters Encounter Location Date Provider Diagnosis [facility] [address] [place] [id number] 01/04/2024 Amilcar Tristan Hx of ovarian cancer Z85.43 ; Osteopenia, unspecified location M85.80 ; Tobacco use Z72.0 ; Centrilobular emphysema J43.2 ; History of atrial fibrillation Z86.79 ; Sleep apnea in adult G47.30 and Encounter for immunization Z23 [facility] [address] [place] [id number] 05/17/2024 [place] Influenza A J10.1 [facility] [address] [place] [id number] 07/04/2024 Amilcar Tristan Essential hypertensi on I10 ; History of atrial fibrillation Z86.79 ; Rheumatoid arthritis involving multiple sites with positive rheumatoid factor M05.79 ; Centrilobular emphysema J43.2 ; Osteopenia, unspecified location M85.80 ; Hair loss L65.9 ; Hyperlipidemia, unspecified hyperlipidemia type E78.5 ; Sleep apnea in adult G47.30 ; Paroxysmal atrial fibrillation I48.0 and BMI 28.0-28.9,adult Z68.28 [facility] [address] [place] [id number] 01/09/2024 Amilcar Tristan Assessments Encounter Date Diagnosis (ICD Code) Assessment Notes Treatment Notes Treatment Clinical Notes Section Notes 01/04/2024 Osteopenia, unspecified location (ICD-10 - M85.80) 01/04/2024 Hx of ovarian cancer (ICD-10 - Z85.43) 05/17/2024 Influenza A (ICD-10 - J10.1) 07/04/2024 Essential hypertension (ICD-10 - I10) 07/04/2024 History of atrial fibrillation (ICD-10 - Z86.79) 07/04/2024 Rheumatoid arthritis involving multiple sites with positive rheumatoid factor (ICD-10 - M05.79) 01/04/2024 Tobacco use (ICD-10 - Z72.0) 01/04/2024 Centrilobular emphysema (ICD-10 - J43.2) 07/04/2024 Centrilobular emphysema (ICD-10 - J43.2) 07/04/2024 Osteopenia, unspecified location (ICD-10 - M85.80) 01/04/2024 History of atrial fibrillation (ICD-10 - Z86.79) 01/04/2024 Sleep apnea in adult (ICD-10 - G47.30) 07/04/2024 Hair loss (ICD-10 - L65.9) 07/04/2024 Hyperlipidemia, unspecified hyperlipidemia type (ICD-10 - E78.5) 01/04/2024 Encounter for immunization (ICD-10 - Z23) 07/04/2024 Sleep apnea in adult (ICD-10 - G47.30) 07/04/2024 Paroxysmal atrial fibrillation (ICD-10 - I48.0) 07/04/2024 BMI 28.0-28.9,adult (ICD-10 - Z68.28) Plan Of Treatment Next Appt Details Provider Name:Amilcar Jean er, 12/05/2024 01:30:00 PM, [address], [address], [place], [place], [id number], Insurance Providers Payer Name Payer Address Payer Phone Subscriber Number Group Number Insured Name Patient Relationship to Insured Coverage Start Date Coverage End Date MEDICARE PART B [address] [address] [place] [address] [phone] [id number] Charity Rose Self - patient is the insured [facility] [address] [place] [address] [id number] Charity Rose Self - patient is the insured Medications Administered Medication Instructions Date of Administration Dosage Notes Dexamethasone 07/04/2017 1 mL Dexamethasone 04/11/2019 1 mL Medical (General) History Medical History History ICD Code Hypertension [place] Palsy-2011 Rheumatoid arthritis [facility] [place] 06/01/20 Cardiolyte GXT neg for ischemia Echocardiogram 06/01/20 06/04/21 CT chest with stable nodules Dexa Scan, [facility] Center 01/19/2022 Mammogram 10/2021 right sided nonfunctional sellar mass, Ian Wong, see records Osteopenia Surgical History Surgery Date(Month/Year) Tubal breast enlargement parathyroidectomy total hysterectomy, 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 05/15/2017 appendectomy 05/15/2017 Hospitalization History Reason Date(Month/Year) high heart rate 01/02/2018
--- OUTSIDE RECORDS SUMMARY | 2024-10-16 09:30 | XMS_ITS | Encounter Summary ---
[facility] Address [address] [place] [address] Care Team Providers Care Expander Name Role Phone Jay Conrad MD Primary Care Provider Encounter Details Date Type Department Care Team (Late Contact Info) Description 07/08/2024 Results Follow-Up [facility] [address] [phone] Bora Ndiaye APRN [address] [address] Social History Tobacco Use Types [...] Description 12/26/2024 11:30 AM EDT Office Visit [facility] [address] [phone] Huber Miles MD [address] [facility] [address] [place] [address] documented as of this encounter Visit Diagnoses Not on filedocumented in this encounter Care Teams Expander Relationship Specialty Start Date End Date Jay Conrad MD [facility] [address] [place] [address] PCP - General 05/26/15 documented as of this encounter
[2024-10-16 10:44] LABS: Alanine Aminotransferase 21 U/L (12-78); Albumin Level 4.2 g/dl (3.5-5.0); Alkaline Phosphatase 84 U/L (38-126); Aspartate Amino Transferase 25 U/L (14-36); Bilirubin,Direct 0.1 mg/dl (0.0-0.4); Bilirubin,Indirect 0.4 mg/dL (0.0-0.9); Bilirubin,Total 0.5 mg/dl (0.2-1.3); Bilirubin,Unconjugated 0.5 mg/dL (0.0-1.1); Cholesterol 168 mg/dl (140-200); HDL Cholesterol 72 mg/dl (40-60); Total Protein,Serum 6.5 g/dl (6.3-8.2); Triglycerides 89 mg/dl (30-150)
== END 2024-10-16 23:59 | disposition home or self-care (01) ==
LOC: LAB 09:27
PROVIDERS: PCP Family Medicine; Visit Provider Nurse Practitioner Family
DX: E78.2 Mixed hyperlipidemia (principal); I10 Essential (primary) hypertension; R06.01 Orthopnea
CPT/HCPCS: 36415; 80061; 80076